=== PATIENT | female | born 1955 | race Caucasian/White ===

== ENCOUNTER 2019-07-09 09:25 | Outpatient (CLI) | payer BC, SELFPAY ==
--- NOTE | ~2019-07-09 | XR_ITS ---
EXAMINATION: XR abdomen/kub 1V INDICATION: Constipation TECHNIQUE: Supine views of the abdomen were obtained on 2 radiographs. COMPARISON: 05/09/2014 FINDINGS: A moderate volume of colonic stool is present. The bowel gas pattern is normal. Cholecystec nu clips are noted in the right upper quadrant. The lung bases are clear. Phleboliths are noted in the pelvis. IMPRESSION: 1. Constipation. Reviewed, dictated and finalized at location A. IMPRESSION: 1. Constipation.
== END 2019-07-09 09:26 | disposition home or self-care (01) ==
LOC: ANHIMG 09:30
PROVIDERS: PCP Family Medicine; Visit Provider Family Medicine
DX: K59.00 Constipation, unspecified (principal)
CPT/HCPCS: 74018

== ENCOUNTER 2021-01-20 07:40 | Outpatient (CLI) | payer BC, SELFPAY ==
--- NOTE | ~2021-01-20 | MM_ITS ---
EXAMINATION: MM screening [facility] BI w gary HISTORY: Screening TECHNIQUE: Craniocaudal and mediolateral oblique 3-D tomosynthesis images were obtained and synthetic 2-D images were generated. CAD analysis was submitted and interpreted. COMPARISON: Comparison to multiple prior studies sequentially, with oldest reviewed study dated 11/12. BREAST PARENCHYMAL COMPOSITION: There are scattered areas of fibroglandular density. FINDINGS: There is no evidence of suspicious mass, calcification, or architectural distortion to sugg est malignancy in either breast. There has been no suspicious interval change. IMPRESSION: 1. No mammographic evidence of malignancy. 2. Recommend routine screening mammography in one year. BI-RADS Category 1: Negative Reviewed, dictated and finalized at location A.
== END 2021-01-20 07:41 | disposition home or self-care (01) ==
LOC: ANHIMG 07:42
PROVIDERS: PCP Family Medicine; Visit Provider Family Medicine
DX: Z12.31 Encounter for screening mammogram for malignant neoplasm of breast (principal)
CPT/HCPCS: 77063; 77067

== ENCOUNTER 2021-03-09 14:54 | Outpatient (CLI) | payer BC, SELFPAY ==
--- NOTE | ~2021-03-09 | DEXA_ITS ---
Bone Density Report Name: MARIE MEYER Age: 65 Sex: Female Ethnicity: White Date of : 1955 Indication: postmenopausal; parental hip fracture; hysterectomy; Referring Provider: ARVIND ORANTES Study: Bone densitometry was performed. Exam Date: March 09, 2021 Accession number: [id number] Bone Density: Region BMD T-score Z-score Classification AP Spine (L1-L4) 0.926 -1.1 0.6 Osteopenia Femoral Neck (Left) 0.769 -0.7 0.8 Normal Total Hip (Left) 0.938 0.0 1.2 Normal Total Hip Bilateral Avg 0.900 -0.3 0.9 Normal Femoral Neck (Right) 0.720 -1.2 0.3 Osteopenia Total Hip (Right) 0.860 -0.7 0.5 Normal World Health Organization criteria for BMD impression classify patients as: Normal (T-score at or above -1.0), Osteopenia (T-score between -1.0 and -2.5), or Osteoporosis (T-score at or below -2.5). 10-year Fracture Risk(1): Major Osteoporotic Fracture 16% Hip Fracture 0.7% Reported Risk Factors: [place] (), Neck BMD=0.720, BMI=25.2, parental fracture (1) FRAX(R) Version 3.08. Fracture probability calculated for an untreated patient. Fracture probability may be lower if the patient has received treatment. Previous Exams: Region Exam Age BMD T-score BMD Change BMD Change Date g/cm2 vs Baseline vs Previous Total Hip(Left) 03/09/2021 65 0.938 0.0 -0.301(-24.3%) -0.301(-24.3%) 12/06/2007 52 1.238 2.4 Total Hip(Right) 03/09/2021 65 0.860 -0.7 -0.214(-20.0%) -0.214(-20.0%) 12/06/2007 52 1.074 1.1 *Denotes significance at 95% confidence level, LSC for Total Hip = 0.027 g/cm2 Clinical Information Provided by Patient: Parent has had a hip fracture Has used the following medications: Vitamin D Has the following medical conditions: Hysterectomy Patient maximum height was 64.5 Menopause Age: 52 Drinks caffeinated beverages Onset of menses at age 13 Number of children 2 Impression: The patient has low bone mass, based on the Right Femoral Neck T-score. The patient has an estimated ten-year risk of hip fracture of 0.7% and an estimated ten-year risk of major fracture of 16%, based on the WHO FRAX algorithm. The patient has risk factors, including: parental hip fracture. No significant bone loss was observed. Discussion: BONE DENSITY IS LOW AT ONE OR MORE SKELETAL SITES. This patient's lowest T-score is low at one or more skeletal sites. It meets the World Health Organization's (WHO) criteria for ?low bone mass? (T-score between -1.0 and -2.5). The jessi
== END 2021-03-09 14:55 | disposition home or self-care (01) ==
LOC: ANHIMG 14:55
PROVIDERS: PCP Family Medicine; Visit Provider Family Medicine
DX: Z78.0 Asymptomatic menopausal state (principal); M85.88 Other specified disorders of bone density and structure, other site; M85.851 Other specified disorders of bone density and structure, right thigh; M85.852 Other specified disorders of bone density and structure, left thigh
CPT/HCPCS: 77080

== ENCOUNTER 2021-06-06 17:02 | Outpatient (CLI) | payer OTHER, SELFPAY ==
--- NOTE | ~2021-06-06 | XR_ITS ---
EXAMINATION: XR chest 2V 06/06/2021 17:13 INDICATION: Chronic sinusitis PROCEDURE: 2 view chest COMPARISON: Comparison to multiple prior studies sequentially, with oldest reviewed study dated 11/27. FINDINGS: The lungs are clear. The cardiomediastinal silhouette is within normal limits. There are no pleural effusions. There is no pneumothorax suspected. IMPRESSION: 1: NO ACUTE CARDIOPULMONARY DISEASE. Reviewed, dictated and finalized at location A.
== END 2021-06-06 17:03 | disposition home or self-care (01) ==
LOC: ANHIMG 17:03
PROVIDERS: PCP Family Medicine; Visit Provider Nurse Practitioner Gerontology
DX: J32.9 Chronic sinusitis, unspecified (principal); R05.9 Cough, unspecified
CPT/HCPCS: 71046

== ENCOUNTER → 2021-06-13 11:22 | Outpatient (CLI) | payer OTHER, SELFPAY ==
--- NOTE | ~2021-06-13 | CT_ITS ---
EXAMINATION: CT sinus wo con DATE: 06/13/2021 11:35 INDICATION: Chronic sinusitis, cough, postnasal drip.. Previous bilateral turbinectomy, sinus surgery TECHNIQUE: Computed tomography (CT) of the paranasal sinuses was performed without contrast. Iterativ e reconstruction technique was employed. Exam dose: 280.89 mGy-cm total exam DLP. COMPARISON: None FINDINGS: There is rightward bowing of the nasal septum. There is partial resection of the middle nasal turbinates. There is prominent soft tissue swelling of the inferior nasal turbinates. Status post bilateral nasal antral windows, including resection of the left uncinate process.. There is minimal mucoperiosteal thickening of the maxillary sinuses. Status post bilateral partial ethmoidectomies, with mild to moderate soft tissue thickening of the re maining ethmoid septae. The frontal sinuses and sphenoid sinuses are well developed and aerated, with minimal mucoperiosteal thickening at the left sphenoid sinus. IMPRESSION: Bilateral nasal antral windows including resection of the left uncinate process Bilateral partial ethmoidectomies Mild soft tissue thickening of the maxillary and ethmoid sinuses Reviewed, dictated and finalized at Location A. Reviewed, dictated and finalized at location A. IMPRESSION: Bilateral nasal antral windows including resection of the left unc inate process Bilateral partial ethmoidectomies Mild soft tissue thickening of the maxillary and ethmoid sinuses
== END ==
PROVIDERS: PCP Family Medicine; Visit Provider Nurse Practitioner Gerontology
DX: J32.9 Chronic sinusitis, unspecified (principal)
CPT/HCPCS: 70486

== ENCOUNTER 2021-10-24 08:48 | Outpatient (CLI) | payer OTHER, SELFPAY ==
--- NOTE | ~2021-10-24 | XR_ITS ---
EXAMINATION: XR barium swallow modified DATE: 10/24/2021 09:14 INDICATION: Dysphagia. TECHNIQUE: The patient was given barium-containing material of multiple consistencies to swallow by t he speech pathologist while I performed fluoroscopy. Fluoroscopy exposure time was 0.5 minutes. The n umber of fluoroscopy images saved to the PACS was 1. Dose-area product was 0.385 Gy-cm^2. FINDINGS: The oral stage, pharyngeal stage, and cervical/esophageal stage of the swallow are normal. IMPRESSION: 1. Normal modified barium swallow. 2. Please refer to the speech therapy report for recommendations. Reviewed, dictated and finalized at location A.
--- NOTE | 2021-10-24 09:41 | STOPEVAL ---
Thank you for referring Ca Dunn to [facility].? I agree with and certify that the following plan of care is medically necessary. Referring Physician Date Attending Provider: Elias Ruvalcaba MD Therapy Assessment Status Assessment Status Assessment Status Evaluation Outpatient Past Medical History Past Medical History No Past Medical/Surgical History Patient/Family Denies Significant Past Medical/ Surgical History Pain Assessment Timing of Pain Assessment Timing of Pain Assessment Assessment Self Report Self Report Pain Level 0 Pain Score Pain Score 0: Self Report Modified Barium Swallow Evaluation Consistency Mixed Consistency 5 mL Method of Presentation Spoon Oral Preparatory Symptoms Within Functional Limits Oral Phase Symptoms Within Functional Limits Pharyngeal Phase Symptoms Within Functional Limits Severity of Vallecular Residue None - 0% No Residue Severity of Pyriform Sinus Residue None - 0% No Residue 8 Point Laryngeal Penetration-Aspiration Material Does Not Enter Airway Scale Cervical/Esophageal Symptoms Within Functional Limits Pureed Consistency 5 mL Method of Presentation Spoon Oral Preparatory Symptoms Within Functional Limits Oral Phase Symptoms Within Functional Limits Pharyngeal Phase Symptoms Within Functional Limits Severity of Vallecular Residue None - 0% No Residue Severity of Pyriform Sinus Residue None - 0% No Residue 8 Point Laryngeal Penetration-Aspiration Material Does Not Enter Airway Scale Cervical/Esophageal Symptoms Within Functional Limits Pureed Consistency 3 mL Method of Presentation Spoon Oral Preparatory Symptoms Within Functional Limits Oral Phase Symptoms Within Functional Limits Pharyngeal Phase Symptoms Within Functional Limits Severity of Vallecular Residue None - 0% No Residue Severity of Pyriform Sinus Residue None - 0% No Residue 8 Point Laryngeal Penetration-Aspiration Material Does Not Enter Airway Scale Cervical/Esophageal Symptoms Within Functional Limits Thin Uncontrolled 1 Method of Presentation Cup Oral Preparatory Symptoms Within Functional Limits Oral Phase Symptoms Within Functional Limits Pharyngeal Phase Symptoms Within Functional Limits Severity of Vallecular Residue None - 0% No Residue Severity of Pyriform Sinus Residue None - 0% No Residue 8 Point Laryngeal Penetration-Aspiration Material Does Not Enter Airway Scale Cervical/Esophageal Symptoms Within Functional Limits Thin 5 mL Method of Presentation Spoon Oral Preparatory Symptoms Within Functional Limits Oral Phase Symptoms Within Functional Limits Pharyngeal Phase Symptoms Withi
== END 2021-10-24 08:49 | disposition home or self-care (01) ==
PROVIDERS: PCP Family Medicine; Visit Provider Internal Medicine Gastroenterology
DX: R13.10 Dysphagia, unspecified (principal)
CPT/HCPCS: 92611

== ENCOUNTER 2021-10-29 03:10 | Emergency (ER) | payer OTHER, SELFPAY ==
[2021-10-29] VITALS (22 sets, daily range): BP systolic 105–160; BP diastolic 58–98; PULSE 71–118; RESP 11–23; TEMP 36.7; O2SAT 96–100
--- NOTE | ~2021-10-29 | CT_ITS ---
EXAMINATION: CT abdomen pelvis w con INDICATION: Upper abdominal pain TECHNIQUE: Computed tomographic images of the abdomen and pelvis were obtained after the administrati on of 100 cc of Omnipaque 350 intravenous contrast. The dose-length product (DLP) was 381.71 mGy-cm. Automated exposure control and iterative reconstruction technique were employed. COMPARISON: 06/29/2016 FINDINGS: Minimal dependent atelectasis is present in the lung bases. The heart size is normal. The g allbladder is surgically absent. The liver, spleen, pancreas, and adrenal glands are normal. Cysts of the kidneys measure up to 7.1 cm on the left. No pathologically enlarged abdominal or pelvic lymph n odes are identified. There is no free intraperitoneal gas or evidence of bowel obstruction. The appen deyvi is normal. Colonic diverticulosis is present without evidence of diverticulitis. There is mild portia mbar spondylosis. IMPRESSION: 1. No CT correlate for the patient's symptoms. Reviewed, dictated and finalized at location A.
--- NOTE | ~2021-10-29 | XR_ITS ---
EXAMINATION: XR chest 1V portable INDICATION: Chest pain TECHNIQUE: Portable AP chest at 0346 hours COMPARISON: 06/06/2021 FINDINGS: The lungs are free of acute opacities. No pleural effusion or pneumothorax. The cardiomedia stinal silhouette is normal. The visualized bones and soft tissues are unremarkable. IMPRESSION: 1. No acute cardiopulmonary abnormality. Reviewed, dictated and finalized at location A.
--- NOTE | 2021-10-29 03:25 | ECG_ITS ---
Measurements Intervals [place] Rate: 109 P: 70 GA: 186 QRS: 71 QRSD: 88 T: 67 QT: 326 QTc: 439 Interpretive Statements SINUS TACHYCARDIA BASELINE ARTIFACT BORDERLINE ECG NO PREVIOUS ECG AVAILABLE FOR COMPARISON Electronically Signed On 10-29-2021 14:38:41 CDT by Willie Avila M.D.
[2021-10-29 03:39] LABS: Basophils Absolute Auto 0.1 K/mm3 (0.0-0.1); Basophils Percent Auto 1.1 % (0.2-1.2); Eosinophils Absolute Auto 0.5 K/mm3 (0-0.3); Eosinophils Percent Auto 6.3 % (0-4.4); Hematocrit 39.6 % (37.0-47.0); Hemoglobin 13.1 g/dL (12.0-15.0); Immature Granulocyte Absolute 0.02 K/mm3 (0.00-0.031); Immature Granulocyte Percent A 0.2 % (0-0.5); Lymphocytes Absolute Auto 3.65 K/mm3 (0.9-3.2); Mean Corpuscular HGB Conc 33.1 g/dl (32-36); Mean Corpuscular Hemoglobin 28.4 pg (26-34); Mean Corpuscular Volume 85.7 fl (80-100); Mean Platelet Volume 8.1 fl (7.4-10.4); Monocytes Absolute Auto 0.7 K/mm3 (0.1-0.6); Monocytes Percent Auto 7.7 % (2.6-8.5); Neutrophils Absolute Auto 3.5 K/mm3 (1.3-6.7); Neutrophils Percent Auto 41.7 % (45.5-73.1); Platelet Count Result 322 k/mm3 (150-375); Red Blood Count 4.62 M/mm3 (4.2-5.4); Red Cell Distribution Width 13.2 % (11.5-14.5); White Blood Count 8.5 K/mm3 (4.5-10.0)
[2021-10-29] MEDS: KETOROLAC 30 MG/ML VIAL (*BKC) 15 MG IV PUSH (03:42)
[2021-10-29 03:53] LABS: Alanine Aminotransferase 14 U/L (6-35); Albumin Level 4.8 g/dL (3.5-5.1); Alkaline Phosphatase 50 U/L (38-126); Anion Gap 11 mmol/L (8-16); Aspartate Amino Transferase 23 U/L (14-36); Bilirubin,Total 0.4 mg/dL (0.2-1.3); Blood Urea Nitrogen 6 mg/dL (7-17); Calcium 8.8 mg/dL (8.4-10.2); Carbon Dioxide 22 mmol/L (22-30); Chloride 98 mmol/L (98-107); Estimated CRCL calculation 50 ml/min; Estimated Glomerular Filt Rate > 60; Glucose 115 mg/dL (65-110); Lipase 111 U/L (23-300); Potassium 3.6 mmol/L (3.4-5.0); Sodium 131 mmol/L (137-145)
[2021-10-29 03:59] LABS: D Dimer 0.26 ug/mL (<0.48)
[2021-10-29 04:02] LABS: Troponin I < 0.012 ng/mL (0.000-0.034)
--- NOTE | 2021-10-29 04:10 | ED.ABDPAIN ---
HPI - Abdominal Pain General Chief Complaint: Abdominal Pain Stated Complaint: upper abd pain Time Seen by Provider: 10/29/21 03:13 History of Present Illness HPI narrative: 66-year-old female presents emergency room secondary to pain. She describes it as a sharp burning pain that comes from her upper abdomen all the way around her thorax circumferentially. She states it prevents her from laying back and try to get any rest. She states it seems to come and then go. She was able to lay over on her left side and go to sleep but then when she rolled over towards the right it woke her up. She is never had anything like this before. She was painting yesterday and thought maybe she had some type of nerve type pain associated with that. Denies any cough or congestion. No chills or fevers. No pressure type sensation in her chest. She been maintaining a good appetite with no nausea, vomiting, or diarrhea. She never had anything like this before. Related Data Home Medications Medication Instructions Recorded Confirmed cholestyramine (with sugar) 4 gram PO DAILY 10/03/21 10/03/21 powder for susp in a packet coenzyme Q10 100 mg capsule 100 mg PO DAILY 10/03/21 10/03/21 Allergies Allergy/AdvReac Type Severity Reaction Status Date / Time nortriptyline Allergy Unknown nausea Verified 10/29/21 03:28 Review of Systems Review of Systems: CONSTITUTIONAL: Denies fever, chills, or sweats. EYES: Denies visual changes, redness, or discharge. ENT: Denies rhinorrhea, congestion, sore throat, or otalgia. CARDIOVASCULAR: Denies chest pain, palpitations, or edema. RESPIRATORY: Denies cough or dyspnea. GASTROINTESTINAL: Pain across upper portion of the abdomen with no associated nausea vomiting or diarrhea. GENITOURINARY: Denies dysuria or hematuria. SKIN: Denies rash or itching. MUSCULOSKELETAL: Denies back pain, joint pain, or myalgia. NEUROLOGIC: Denies headache, numbness, or weakness. PSYCHIATRIC: Denies anxiety or depression. [facility] Past Medical History Medical History Allergies Bile reflux esophagitis Constipation Endometriosis IBS (irritable bowel syndrome) Ovarian mass, left Pancreas divisum, [place] Pelvic peritoneal adhesions Spondylosis Surgical History Surgical History H/O exploratory laparotomy History of sinus surgery Hx laparoscopic cholecystectomy Hx of hysterectomy S/P left oophorectomy Family History Family History Mother Family history of thyroid disease Family history of elevated blood lipids Family history of gallbladder disease Family history of osteoarthritis Father Hypertension Family history of atrial fibrillation Patient's father is , Onset Age: 83 Sibling Family history of gallbladder disease Family history of gynecological problem Hypertension Patient's sister is in good health Grandparent Carcinoma of colon Family history of malignant neoplasm of breast Family history of type 2 diabetes mellitus Acute myocardial infarction Other Breast cancer Cancer Diabetes mellitus Family history of allergic disorder Family history of blood dyscrasia Family history of cardiovascular disease Heart disease Malignant neoplasm of prostate Thyroid disorder Social History Social History Social History: Smoking packs per day: 2 Smoking cigarettes per day: 40.0 Years smoked: 5 Smoking pack-years: 10.00 Smoking status: Former smoker Tobacco type: cigarettes Second hand tobacco smoke exposure: No Smoking end date: 03/18/77 Alcohol intake: current Drinks per week: 2 Substance use: never Substance use type: does not use Additional occupation/education comments: Self-employed Gender identity (if verbalized by the patien
== END 2021-10-29 07:51 | disposition home or self-care (01) ==
PROVIDERS: Emergency Provider Emergency Medicine; PCP Family Medicine
DX: K29.70 Gastritis, unspecified, without bleeding (principal); K58.9 Irritable bowel syndrome, unspecified; K21.00 Gastro-esophageal reflux disease with esophagitis, without bleeding; Z90.710 Acquired absence of both cervix and uterus; Z87.891 Personal history of nicotine dependence
CPT/HCPCS: 36415; 71045; 74177; 80053; 83690; 84484; 85025; 85380; 93005; 96374; 99284; J1885; Q9967

== ENCOUNTER 2021-11-08 09:33 | Outpatient (CLI) | payer OTHER, SELFPAY ==
--- NOTE | ~2021-11-08 | XR_ITS ---
EXAMINATION: XR UGIAC w barium swallow DATE: 11/08/2021 10:25 INDICATION: Dysphagia. Chronic epigastric pain. TECHNIQUE: The patient drank thick barium, gas-producing crystals, and thin barium. Fluoroscopic spot radiographs of the hypopharynx, esophagus, stomach and proximal small bowel were obtained. Fluorosco py exposure time was 1.9 minutes. A total of 1192 fluoroscopic images were recorded. COMPARISON: None. FINDINGS: The pharynx is symmetric and without evidence of mass lesion or mucosal irregularity. The esophagus i s normal without mass or stricture. Esophageal motility is normal. There is no hiatal hernia. There w as no gastroesophageal reflux with provocative maneuvers. The stomach and proximal small bowel are no rmal. IMPRESSION: 1. Normal esophagram and upper GI study. Reviewed, dictated and finalized at location A.
== END 2021-11-08 09:34 | disposition home or self-care (01) ==
PROVIDERS: PCP Family Medicine; Visit Provider Nurse Practitioner Family
DX: R13.10 Dysphagia, unspecified (principal); R10.13 Epigastric pain
CPT/HCPCS: 74246

== ENCOUNTER 2022-01-01 00:55 | Day surgery (SDC) | payer OTHER, SELFPAY ==
[2021-12-13 14:01] VITALS: BMI 25.7
--- NOTE | 2021-12-29 15:54 | PM.HPGS ---
History of Present Illness History of Present Illness Consent: Risks, benefits, and alternatives have been discussed and questions answered. Patient agrees to proceed with procedure. Chief complaint: neoplasm screening Narrative: Ca Dunn is a 66 year old female Referred for colon cancer screening. her last colonoscopy was 13 years ago. Review of Systems Review of Systems: All systems reviewed & are unremarkable except as noted in HPI and below PMFSH Past Medical History Medical History Allergies Bile reflux esophagitis Constipation Endometriosis GERD (gastroesophageal reflux disease) Hyperlipidemia Hypothyroidism (acquired) IBS (irritable bowel syndrome) Ovarian mass, left Pancreas divisum, [place] Pelvic peritoneal adhesions Spondylosis Surgical History Surgical History H/O exploratory laparotomy History of sinus surgery Hx laparoscopic cholecystectomy Hx of hysterectomy S/P left oophorectomy Family History Family History Mother Family history of thyroid disease Family history of elevated blood lipids Family history of gallbladder disease Family history of osteoarthritis Father Hypertension Family history of atrial fibrillation Patient's father is , Onset Age: 83 Sibling Family history of gallbladder disease Family history of gynecological problem Hypertension Patient's sister is in good health Grandparent Carcinoma of colon Family history of malignant neoplasm of breast Family history of type 2 diabetes mellitus Acute myocardial infarction Other Breast cancer Cancer Diabetes mellitus Family history of allergic disorder Family history of blood dyscrasia Family history of cardiovascular disease Heart disease Malignant neoplasm of prostate Thyroid disorder Social History Social History Social History: Smoking packs per day: 2 Smoking cigarettes per day: 40.0 Years smoked: 5 Smoking pack-years: 10.00 Smoking status: Former smoker Tobacco type: cigarettes Second hand tobacco smoke exposure: No Smoking end date: 03/18/77 Alcohol intake: current Drinks per week: 2 Substance use: never Substance use type: does not use Living arrangements: with family Additional occupation/education comments: Self-employed Gender identity (if verbalized by the patient): Female Sexual Orientation (if Verbalized by the Patient): Straight or Heterosexual Spiritual care concerns: No Meds Home Medications and Allergies Home Medications Medication Instructions Recorded Confirmed Type coenzyme Q10 100 mg capsule 100 mg PO DAILY 10/03/21 01/01/22 History amitriptyline 25 mg tablet 25 mg PO QHS 1 month #30 tabs 11/01/21 01/01/22 Rx cetirizine 10 mg tablet 10 mg PO HS 12/13/21 01/01/22 History fluticasone propionate 50 2 spray intranasal DAILY 12/13/21 01/01/22 History mcg/actuation nasal spray,suspension pantoprazole 40 mg tablet,delayed 40 mg PO 3XW 12/13/21 01/01/22 History release levothyroxine 25 mcg tablet 25 mcg PO DAILY #90 tabs 12/14/21 01/01/22 Rx Allergies Allergy/AdvReac Type Severity Reaction Status Date / Time nortriptyline AdvReac Unknown nausea Verified 01/01/22 07:39 Exam Const: General: alert Orientation/consciousness: patient oriented x3 Resp: Auscultation: clear to auscultation bilaterally Cardio: Rhythm: regular rhythm GI: GI Palp: Yes Soft to palpation and No Tenderness to palpation present (GI) Neuro: General: patient oriented x3 Assessment and Plan Assessment and plan (1) Encounter for colorectal cancer screening: Code(s): Z12.11 - Encounter for screening for malignant neoplasm of colon; Z12.12 - Encounter for screening for malignant neoplasm of r
--- NOTE | 2022-01-01 07:28 | WPDANESEPPF ---
Anes - Initial Pre Proc Eval Procedure: Operation Date: 01/01/22 08:30 Proposed Procedures p Screening Colonoscopy - Elias Ruvalcaba MD Date/Time: 01/01/22 07:28 Surgeon: Elias Ruvalcaba MD Pre Op Diagnosis: neoplasm screening Patient Data Age: 66 Gender: F Height: 1.6 m Weight: 66 kg Allergies Allergy/AdvReac Type Severity Reaction Status Date / Time nortriptyline AdvReac Unknown nausea Verified 01/01/22 07:39 Home Medications Medication Instructions Recorded Confirmed Type coenzyme Q10 100 mg capsule 100 mg PO DAILY 10/03/21 01/01/22 History amitriptyline 25 mg tablet 25 mg PO QHS 1 month #30 tabs 11/01/21 01/01/22 Rx cetirizine 10 mg tablet 10 mg PO HS 12/13/21 01/01/22 History fluticasone propionate 50 2 spray intranasal DAILY 12/13/21 01/01/22 History mcg/actuation nasal spray,suspension pantoprazole 40 mg tablet,delayed 40 mg PO 3XW 12/13/21 01/01/22 History release levothyroxine 25 mcg tablet 25 mcg PO DAILY #90 tabs 12/14/21 01/01/22 Rx Patient hx anesthesia problems: none Family hx anesthesia problems: none Results Review: All pre-operative results and documents have been reviewed as part of the pre-operative evaluation. [facility] Past Medical History Medical History (Updated 01/01/22 @ 07:29 by Dez Morton, ) Allergies Bile reflux esophagitis Constipation Endometriosis GERD (gastroesophageal reflux disease) Hyperlipidemia Hypothyroidism (acquired) IBS (irritable bowel syndrome) Ovarian mass, left Pancreas divisum, [place] Pelvic peritoneal adhesions Spondylosis Surgical History Surgical History H/O exploratory laparotomy History of sinus surgery Hx laparoscopic cholecystectomy Hx of hysterectomy S/P left oophorectomy Family History Family History Mother Family history of thyroid disease Family history of elevated blood lipids Family history of gallbladder disease Family history of osteoarthritis Father Hypertension Family history of atrial fibrillation Patient's father is , Onset Age: 83 Sibling Family history of gallbladder disease Family history of gynecological problem Hypertension Patient's sister is in good health Grandparent Carcinoma of colon Family history of malignant neoplasm of breast Family history of type 2 diabetes mellitus Acute myocardial infarction Other Breast cancer Cancer Diabetes mellitus Family history of allergic disorder Family history of blood dyscrasia Family history of cardiovascular disease Heart disease Malignant neoplasm of prostate Thyroid disorder Social History Social History (Updated 12/14/21 @ 07:52 by Zari Fernandez) Social History: Smoking packs per day: 2 Smoking cigarettes per day: 40.0 Years smoked: 5 Smoking pack-years: 10.00 Smoking status: Former smoker Tobacco type: cigarettes Second hand tobacco smoke exposure: No Smoking end date: 03/18/77 Alcohol intake: current Drinks per week: 2 Substance use: never Substance use type: does not use Living arrangements: with family Additional occupation/education comments: Self-employed Gender identity (if verbalized by the patient): Female Sexual Orientation (if Verbalized by the Patient): Straight or Heterosexual Spiritual care concerns: No Anes - Eval Final PreProcedure Day of Procedure 01/01/22 07:28 Patient weight: overweight Heart: regular rate and rhythm Lungs: clear to auscultation Airway: Mallampati scale class II Neurological: alert and oriented Last oral intake: >/= 8 hours ASA classification: II Emergent: no Anesthetic plan: proceed Anesthesia type and monitoring: general GIVS and standard monitoring Results Review: All pre-operative results and documents have been reviewed as part of the pre-operative evaluation. Informed Consent
[2022-01-01 07:41] VITALS: BP 125/62; PULSE 74; RESP 16; TEMP 36.4; O2SAT 97; BMI 27.3
[2022-01-01] MEDS: LACTATED RINGERS 1,000 ML 150 ML IV CONT (07:43)
[2022-01-01] MEDS: SIMETHICONE ORAL SUSPENSION 20 MG/0.3 ML 30 ML BOTTLE 0.6 ML IRRIGATION (08:44)
[2022-01-01 08:51] VITALS: BP 91/36; PULSE 78; RESP 16; O2SAT 100
[2022-01-01 09:01] VITALS: BP 122/75; PULSE 63; RESP 15; O2SAT 100
[2022-01-01 09:11] VITALS: BP 128/70; PULSE 66; RESP 17; O2SAT 99
== END 2022-01-01 09:15 | disposition home or self-care (01) ==
PROVIDERS: PCP Family Medicine; Visit Provider Internal Medicine Gastroenterology
PROC: 0DJD8ZZ Inspection of Lower Intestinal Tract, Via Natural or Artificial Opening Endoscopic (ICD-10-PCS; CPT 45378; principal; 2022-01-01 08:30)
DX: Z12.11 Encounter for screening for malignant neoplasm of colon (principal); K57.30 Diverticulosis of large intestine without perforation or abscess without bleeding; E30.9 Disorder of puberty, unspecified; N80.9 Endometriosis, unspecified; K58.9 Irritable bowel syndrome, unspecified; M47.819 Spondylosis without myelopathy or radiculopathy, site unspecified; K21.00 Gastro-esophageal reflux disease with esophagitis, without bleeding; Z90.49 Acquired absence of other specified parts of digestive tract; Z87.891 Personal history of nicotine dependence
CPT/HCPCS: G0121; J2704; J7120

== ENCOUNTER 2022-02-27 15:55 | Outpatient (CLI) | payer OTHER, SELFPAY ==
--- NOTE | ~2022-02-27 | XR_ITS ---
EXAMINATION: XR chest 2V Exam Date/Time: 02/27/2022 16:10 ELECTROPHYSIOLOGY TECH HISTORY: R05.9 - Cough, unspecified Comparison: 10/29/2021 and 06/06/2021. RESULT: Lines, tubes, and devices: None. Lungs and pleura: Clear. Cardiomediastinal silhouette: Stable. Other: No acute osseous or upper abdominal finding. IMPRESSION: No acute cardiopulmonary process. Reviewed, dictated and finalized at location K. TROPHYSIOLOGY TECH
== END 2022-02-27 15:56 | disposition home or self-care (01) ==
PROVIDERS: PCP Family Medicine; Visit Provider Family Medicine
DX: R05.9 Cough, unspecified (principal)
CPT/HCPCS: 71046

== ENCOUNTER 2022-05-28 14:12 | Outpatient (CLI) | payer OTHER, SELFPAY ==
[2022-05-28 15:03] LABS: Basophils Absolute Auto 0.1 K/mm3 (0.0-0.1); Basophils Percent Auto 1.1 % (0.2-1.2); Eosinophils Absolute Auto 0.3 K/mm3 (0-0.3); Eosinophils Percent Auto 3.7 % (0-4.4); Hematocrit 43.3 % (37.0-47.0); Hemoglobin 14.3 g/dL (12.0-15.0); Immature Granulocyte Absolute 0.02 K/mm3 (0.00-0.031); Immature Granulocyte Percent A 0.2 % (0-0.5); Lymphocytes Absolute Auto 2.11 K/mm3 (0.9-3.2); Lymphocytes Percent Auto 25.7 % (18.3-44.2); Mean Corpuscular Hemoglobin 28.9 pg (26-34); Mean Corpuscular Volume 87.5 fl (80-100); Mean Platelet Volume 8.7 fl (7.4-10.4); Monocytes Absolute Auto 0.5 K/mm3 (0.1-0.6); Monocytes Percent Auto 6.3 % (2.6-8.5); Neutrophils Absolute Auto 5.2 K/mm3 (1.3-6.7); Platelet Count Result 339 k/mm3 (150-375); Red Blood Count 4.95 M/mm3 (4.2-5.4); Red Cell Distribution Width 13.5 % (11.5-14.5); White Blood Count 8.2 K/mm3 (4.5-10.0)
[2022-05-28 15:16] LABS: Alanine Aminotransferase 21 U/L (6-35); Alkaline Phosphatase 48 U/L (38-126); Anion Gap 5 mmol/L (8-16); Aspartate Amino Transferase 28 U/L (14-36); Bilirubin,Total 0.4 mg/dL (0.2-1.3); Blood Urea Nitrogen 11 mg/dL (7-17); Calcium 9.4 mg/dL (8.4-10.2); Carbon Dioxide 28 mmol/L (22-30); Chloride 95 mmol/L (98-107); Estimated Glomerular Filt Rate > 60; Glucose 94 mg/dL (65-110); Potassium 5.4 mmol/L (3.4-5.0); Sodium 128 mmol/L (137-145)
== END 2022-05-28 14:13 | disposition home or self-care (01) ==
LOC: ANHLAB 14:13
PROVIDERS: PCP Family Medicine; Visit Provider Physician Assistant
DX: R30.0 Dysuria (principal)
CPT/HCPCS: 36415; 80053; 85025

== ENCOUNTER 2022-05-30 10:38 | Outpatient (CLI) | payer OTHER, SELFPAY ==
[2022-05-30 11:04] LABS: Alanine Aminotransferase 20 U/L (6-35); Albumin Level 4.5 g/dL (3.5-5.1); Alkaline Phosphatase 40 U/L (38-126); Anion Gap 4 mmol/L (8-16); Aspartate Amino Transferase 24 U/L (14-36); Bilirubin,Total 0.4 mg/dL (0.2-1.3); Blood Urea Nitrogen 13 mg/dL (7-17); Calcium 8.7 mg/dL (8.4-10.2); Carbon Dioxide 27 mmol/L (22-30); Chloride 103 mmol/L (98-107); Estimated Glomerular Filt Rate > 60; Glucose 68 mg/dL (65-110); Potassium 4.3 mmol/L (3.4-5.0); Sodium 134 mmol/L (137-145)
== END 2022-05-30 10:39 | disposition home or self-care (01) ==
PROVIDERS: PCP Family Medicine; Visit Provider Physician Assistant
DX: E87.1 Hypo-osmolality and hyponatremia (principal)
CPT/HCPCS: 36415; 80053

== ENCOUNTER 2022-06-13 13:17 | Outpatient (CLI) | payer OTHER, SELFPAY ==
[2022-06-13 13:44] LABS: Anion Gap 7 mmol/L (8-16); Blood Urea Nitrogen 13 mg/dL (7-17); Calcium 9.2 mg/dL (8.4-10.2); Carbon Dioxide 30 mmol/L (22-30); Chloride 101 mmol/L (98-107); Estimated Glomerular Filt Rate > 60; Glucose 75 mg/dL (65-110); Potassium 5.2 mmol/L (3.4-5.0); Sodium 138 mmol/L (137-145)
== END 2022-06-13 13:18 | disposition home or self-care (01) ==
LOC: ANHLAB 13:19
PROVIDERS: PCP Family Medicine; Visit Provider Physician Assistant
DX: E87.1 Hypo-osmolality and hyponatremia (principal)
CPT/HCPCS: 36415; 80048

== ENCOUNTER 2022-12-19 11:15 | Outpatient (CLI) | payer OTHER, SELFPAY ==
--- NOTE | ~2022-12-19 | US_ITS ---
Renal-Bladder ultrasound Clinical History: Renal cyst Technique: Real-time sonographic imaging of the kidneys and urinary bladder was performed. Findings: The right kidney measures 11.3 cm in length and the left kidney measures 10.8 cm. There is no hydronephrosis or renal calculus identified. Renal cortical echogenicity is within normal limits. Large left lower pole renal cyst measures 6.1 x 4.7 x 5.6 cm. The urinary bladder is moderately distended at the time of this exam. No intraluminal echoes are iden tified. No abnormal wall thickening is seen. Impression: 6.1 cm left lower pole benign-appearing renal cyst. No other significant findings. Reviewed, dictated and finalized at location . Impression: 6.1 cm left lower pole benign-appearing renal cyst. No other significant findings.
== END 2022-12-19 11:16 | disposition home or self-care (01) ==
PROVIDERS: PCP Family Medicine; Visit Provider Physician Assistant
DX: N28.1 Cyst of kidney, acquired (principal)
CPT/HCPCS: 76775

== ENCOUNTER 2023-03-08 14:41 | Outpatient (CLI) | payer OTHER, SELFPAY ==
--- NOTE | ~2023-03-08 | MM_ITS ---
EXAMINATION: MM screening [facility] BI w gary HISTORY: Screening TECHNIQUE: Craniocaudal and mediolateral oblique 3-D tomosynthesis images were obtained and synthetic 2-D images were generated. CAD analysis was submitted and interpreted. COMPARISON: No prior mammogram is available for comparison at this institution. BREAST PARENCHYMAL COMPOSITION: There are scattered areas of fibroglandular density. FINDINGS: There is no evidence of suspicious mass, calcification, or architectural distortion to sugg est malignancy in either breast. There has been no suspicious interval change. IMPRESSION: 1. No mammographic evidence of malignancy. 2. Recommend routine screening mammography in one year. BI-RADS Category 1: Negative Reviewed, dictated and finalized at location A. OTIONS MANAGER
== END 2023-03-08 14:42 ==
LOC: MICIMG 14:41
PROVIDERS: PCP Physician Assistant; Visit Provider Physician Assistant
DX: Z12.31 Encounter for screening mammogram for malignant neoplasm of breast (principal)
CPT/HCPCS: 77063; 77067

== ENCOUNTER 2023-04-15 12:05 | Emergency (ER) | payer OTHER, SELFPAY ==
[2023-04-15 12:16] VITALS: BP 156/76; PULSE 89; RESP 18; TEMP 36.9; O2SAT 100
--- NOTE | 2023-04-15 12:39 | ED.SKABFB ---
HPI - Skin/Abscess/Foreign Bdy General Chief complaint: Skin/Abscess/Foreign Body Stated complaint: Bump On Chin Time Seen by Provider: 04/15/23 12:32 Source: patient and RN notes reviewed Mode of arrival: ambulatory Limitations: no limitations History of Present Illness HPI narrative: Patient presents today complaining of redness and tenderness to her chin. She was treated for impetigo in the same area on 02/22/2023 with doxycycline and bacitracin. States symptoms had completely resolved until 2 days ago she had some pustules to this area and last night complains of left-sided jaw pain. Related Data Home Medications Medication Instructions Recorded Confirmed coenzyme Q10 100 mg capsule 100 mg PO DAILY 10/03/21 04/15/23 fluticasone propionate 50 2 spray intranasal DAILY 12/13/21 04/15/23 mcg/actuation nasal spray,suspension omeprazole 40 mg capsule,delayed 40 mg PO DAILY 12/04/22 04/15/23 release amitriptyline 25 mg tablet 25 mg PO DIRECTED 04/15/23 04/15/23 Allergies Allergy/AdvReac Type Severity Reaction Status Date / Time nortriptyline AdvReac Unknown nausea Verified 02/22/23 14:15 Review of Systems Review of Systems: CONSTITUTIONAL: Denies body aches, fever, chills, or sweats. EYES: Denies visual changes, redness, or discharge. ENT: Denies rhinorrhea, congestion, sore throat, or otalgia. CARDIOVASCULAR: Denies chest pain, palpitations, or edema. RESPIRATORY: Denies cough or dyspnea. GASTROINTESTINAL: Denies abdominal pain, nausea, vomiting, or diarrhea. GENITOURINARY: Denies dysuria or hematuria. SKIN: + redness and pain to the chin. MUSCULOSKELETAL: Denies back pain, joint pain, or myalgia. NEUROLOGIC: Denies headache, numbness, tingling, or weakness. PSYCH: Denies depression or anxiety. [facility] Past Medical History Medical History Abdominal pain Acute sinusitis Allergies Bile reflux esophagitis Bronchitis CAP (community acquired pneumonia) Endometriosis GERD (gastroesophageal reflux disease) Hyperlipidemia Hypothyroidism (acquired) IBS (irritable bowel syndrome) Mid-back pain, acute Ovarian mass, left Pancreas divisum, [place] Pelvic peritoneal adhesions Sinusitis Spondylosis Surgical History Surgical History H/O exploratory laparotomy History of sinus surgery Hx laparoscopic cholecystectomy Hx of hysterectomy S/P left oophorectomy Family History Family History Mother Family history of thyroid disease Family history of elevated blood lipids Family history of gallbladder disease Family history of osteoarthritis Father Hypertension Family history of atrial fibrillation Patient's father is , Onset Age: 83 Sibling Family history of gallbladder disease Family history of gynecological problem Hypertension Patient's sister is in good health Grandparent Carcinoma of colon Family history of malignant neoplasm of breast Family history of type 2 diabetes mellitus Acute myocardial infarction Other Breast cancer Cancer Diabetes mellitus Family history of allergic disorder Family history of blood dyscrasia Family history of cardiovascular disease Heart disease Malignant neoplasm of prostate Thyroid disorder Social History Social History Social History: Smoking packs per day: 2 Smoking cigarettes per day: 40.0 Years smoked: 5 Smoking pack-years: 10.00 Smoking status: Former smoker Tobacco type: cigarettes Second hand tobacco smoke exposure: No Smoking end date: 03/18/77 Alcohol intake: current Drinks per week: 2 Substance use: never Substance use type: does not use Lack of Transportation: No Lack of Food: Never True Current Housing: I Have Housing Conc
== END 2023-04-15 12:50 | disposition home or self-care (01) ==
PROVIDERS: Emergency Provider Nurse Practitioner; PCP Family Medicine
DX: L01.00 Impetigo, unspecified (principal); N80.9 Endometriosis, unspecified; E03.9 Hypothyroidism, unspecified; E78.5 Hyperlipidemia, unspecified; Z87.891 Personal history of nicotine dependence
CPT/HCPCS: 99213; G0463

== ENCOUNTER 2023-04-26 13:55 | Outpatient (CLI) | payer OTHER, SELFPAY ==
--- NOTE | ~2023-04-26 | US_ITS ---
EXAMINATION: US venous doppler [facility] DATE: 04/26/2023 14:37 INDICATION: Personal history of other venous thrombosis, left lower limb pain TECHNIQUE: Cates scale images without and with compression and Doppler images of the left lower extrem ity veins were obtained. COMPARISON: 01/24/2013 FINDINGS: The left common femoral vein, profunda femoral vein, femoral vein, popliteal vein, peroneal trunk, posterior tibial veins, and greater saphenous vein are patent. IMPRESSION: 1. Patent left lower extremity veins. No evidence of deep venous thrombosis. Reviewed, dictated and finalized at location B. 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
== END 2023-04-26 13:56 | disposition home or self-care (01) ==
PROVIDERS: PCP Family Medicine; Visit Provider Physician Assistant
DX: M79.89 Other specified soft tissue disorders (principal); Z86.718 Personal history of other venous thrombosis and embolism
CPT/HCPCS: 93971

== ENCOUNTER 2023-08-23 10:31 | Outpatient (CLI) | payer OTHER, SELFPAY ==
--- NOTE | ~2023-08-23 | XR_ITS ---
AP and lateral views of the left hip Clinical history: Pain Findings: No acute fracture or dislocation is seen. Osseous alignment is anatomic. Left hip joint is unremarkable. Soft tissues are unremarkable. Impression: No significant abnormality is seen. Reviewed, dictated and finalized at location M. Impression: No significant abnormality is seen.
--- NOTE | ~2023-08-23 | XR_ITS ---
Lumbosacral Spine: AP and lateral views Clinical History: Pain Findings: The normal lordotic curve is maintained. The vertebral bodies and posterior elements are i ntact. The intervertebral disc spaces are preserved. Moderate to advanced facet arthropathy present throughout the lumbar spine. The sacroiliac joints are normally outlined. Impression: Moderate to advanced facet arthropathy throughout the lumbar spine. Reviewed, dictated and finalized at location . Impression: Moderate to advanced facet arthropathy throughout the lumbar spine.
== END 2023-08-23 10:32 ==
PROVIDERS: PCP Physician Assistant; Visit Provider Physician Assistant
DX: M54.50 Low back pain, unspecified (principal); M79.605 Pain in left leg
CPT/HCPCS: 72100; 73502

== ENCOUNTER 2023-09-18 11:58 | Emergency (ER) | payer OTHER, SELFPAY ==
[2023-09-18 12:28] VITALS: BP 160/81; PULSE 90; RESP 16; TEMP 37.2; O2SAT 100
--- NOTE | 2023-09-18 12:57 | ED.SKABFB ---
HPI - Skin/Abscess/Foreign Bdy General Chief complaint: Skin/Abscess/Foreign Body Stated complaint: spot on chin Time Seen by Provider: 09/18/23 12:17 Source: patient and RN notes reviewed Mode of arrival: ambulatory Limitations: no limitations History of Present Illness HPI narrative: Patient presents today complaining of a chronic wound to her left chin area. She was initially seen approximately 6 months ago here at [facility] and placed on antibiotics for presumed impetigo. She was subsequently seen at her PCPs office several times then referred to Dermatology. She has been seen by Dermatology at least twice and is currently taking an antibiotic and using a topical antibiotic on her wound. Last night she accidentally removed the scab from the area and states that it is inflamed. She came in today wondering if we can do a swab on it to identify why it will not resolve. She has an appointment to follow-up with dermatology on October 03 but does not want to wait that long for further treatment. Related Data Home Medications Medication Instructions Recorded Confirmed coenzyme Q10 100 mg capsule 100 mg PO DAILY 10/03/21 08/23/23 fluticasone propionate 50 2 spray intranasal DAILY 12/13/21 08/23/23 mcg/actuation nasal spray,suspension omeprazole 40 mg capsule,delayed 40 mg PO DAILY 12/04/22 08/23/23 release amitriptyline 25 mg tablet 25 mg PO DIRECTED 04/15/23 08/23/23 Allergies Allergy/AdvReac Type Severity Reaction Status Date / Time nortriptyline AdvReac Unknown nausea Verified 08/23/23 09:54 Review of Systems Review of Systems: CONSTITUTIONAL: Denies body aches, fever, chills, or sweats. EYES: Denies visual changes, redness, or discharge. ENT: Denies rhinorrhea, congestion, sore throat, or otalgia. CARDIOVASCULAR: Denies chest pain, palpitations, or edema. RESPIRATORY: Denies cough or dyspnea. GASTROINTESTINAL: Denies abdominal pain, nausea, vomiting, or diarrhea. GENITOURINARY: Denies dysuria or hematuria. SKIN: + facial wound MUSCULOSKELETAL: Denies back pain, joint pain, or myalgia. NEUROLOGIC: Denies headache, numbness, tingling, or weakness. PSYCH: Denies depression or anxiety. [facility] Past Medical History Medical History Abdominal pain Acute sinusitis Acute streptococcal pharyngitis Allergies Atrophic lichen planus Atypical chest pain Bile reflux esophagitis Biliary stenosis Borderline hypothyroidism Brachial plexus neuropathy Bronchitis CAP (community acquired pneumonia) Cervical radiculopathy Chronic GERD Chronic left-sided thoracic back pain Colon cancer screening Dizziness Dysuria Endometriosis Epigastric pain Esophageal spasm Excessive cerumen in right ear canal Gastritis, bile acid reflux GERD (gastroesophageal reflux disease) GERD with esophagitis Hip pain, bilateral Hives Hyperlipidemia Hypothyroidism (acquired) IBS (irritable bowel syndrome) 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 Lichen sclerosus et atrophicus of the vulva Lipid screening Lipoma of thigh Liver hemangioma Longitudinal melanonychia Mass of left hip region Mid-back pain, acute Myofasciitis Neck pain on right side Neuropathic spondyloarthropathy of thoracic region Other chronic pain Ovarian mass, left Pain in left hip Pancreas divisum, [place] Patellofemoral pain syndrome of left knee Pelvic peritoneal adhesions Pharyngoesophageal dysphagia Postmenopausal atrophic vaginitis Radiculopathy of sacral region Renal cyst, acquired, left RUQ abdominal pain Sacroiliitis Sciatica of left side Sinusitis Spondylosis Spondylosis of lumbar spine Thoracic radiculopathy Tooth infection Trochanteric bursitis of left hip Surgical History Surgical History H/O exploratory laparotomy History of sinus surgery Hx laparoscopic cholecystectomy Hx of hysterectomy S/P left oophore
== END 2023-09-18 12:32 | disposition home or self-care (01) ==
PROVIDERS: Emergency Provider Nurse Practitioner; PCP Family Medicine
DX: S01.80XA Unspecified open wound of other part of head, initial encounter (principal); X58.XXXA Exposure to other specified factors, initial encounter; Z87.891 Personal history of nicotine dependence; K21.9 Gastro-esophageal reflux disease without esophagitis; N80.9 Endometriosis, unspecified; E78.5 Hyperlipidemia, unspecified; E03.9 Hypothyroidism, unspecified
CPT/HCPCS: 99212; G0463

== ENCOUNTER 2023-10-29 13:36 | Outpatient (CLI) | payer OTHER, SELFPAY ==
--- NOTE | ~2023-10-29 | XR_ITS ---
EXAMINATION: XR knee LT 3V DATE: 10/29/2023 13:52 INDICATION: Left knee pain. TECHNIQUE: 3 views of left knee including standing views were obtained. COMPARISON: Left knee radiographs 04/09/2017 FINDINGS: Bone alignment is normal. No fracture. There is mild tricompartmental osteoarthritis charac terized by tiny osteophytes. No joint space narrowing. There is a small knee joint effusion. IMPRESSION: 1. Mild left knee osteoarthritis. 2. Small left knee joint effusion. Reviewed, dictated and finalized at location A.
== END 2023-10-29 13:37 ==
PROVIDERS: PCP Family Medicine; Visit Provider Physician Assistant
DX: M17.12 Unilateral primary osteoarthritis, left knee (principal); M25.462 Effusion, left knee
CPT/HCPCS: 73562

== ENCOUNTER 2024-01-24 01:06 | Day surgery (SDC) | payer OTHER, SELFPAY ==
[2024-01-16 13:12] VITALS: BMI 26.0
--- NOTE | 2024-01-16 13:28 | PC.NURSE ---
Report to the Outpatient Waiting Room, entrance under the green pavilion located off [facility], at time __1030am__ on date __01/24/24 . Planned Procedure Time: ___1230 .? Time changes happen often and if your time is changed the preop area will call you the afternoon before. - You and your visitor will be asked to self-screen and do not enter if you have any COVID symptoms. Please call surgeon if you need to reschedule. - A mask is optional within the hospital at this time. Patients may have clear liquids (water, carbonated beverages, clear teas, apple juice) until 3 hours prior to surgery with a maximum of 20 ounces. - No food from midnight until time of surgery and no smoking(0930am) - Take only the following medications with a SIP of water on the morning of surgery: Levothyroxine DO NOT STOP ANY OF YOUR OTHER PRESCRIPTION MEDICATIONS PRIOR TO SURGERY EXCEPT THE FOLLOWING Medications to discontinue per physician Hold all vitamins and supplements for 3 days prior per Anesthesia Date to take last dose___01/20/24 Please no make-up, nail hungarian, hairspray, perfume, deodorant, or body powder the day of surgery.? No jewelry (including any body piercings) or valuables the day of surgery, leave them at home.? Please take a shower or bath the night before, or the morning of, surgery with an antibacterial soap.? Wear comfortable, loose fitting clothing.? - Jewelry must be removed prior to entering the operating room.? Rings and piercings that are not removed may be cut off. - The hospital will not accept responsibility for valuables.? - Please leave all valuables, including medications, at home the day of surgery. If you are going home after surgery, a licensed fence post driver must drive you home.? - NO public transportation without another adult if you receive anesthesia. - We recommend that an adult stay with you for 24 hours following discharge. - We also recommend that you do not drive, make important decision, drink alcoholic beverages, or take any drugs that were not prescribed by your health care provider for at least 24 hours after your discharge time. Follow any additional instructions given to you from your surgeon. Telephone instructions given to __Patient and asked if any additional questions and then verbalized understanding. Patient advised to call surgeon office or pre surgery nurse liaison [phone] if any additional questions.
--- NOTE | 2024-01-24 07:20 | WPDHPUPDATE1 ---
History and Physical Update Update Date/Time: 01/24/24 07:20 History and Physical has been reviewed, including an updated exam of the patient. There are NO changes in the patient's condition. Risks, benefits, and alternatives have been discussed and questions answered. Patient agrees to proceed with procedure.
[2024-01-24 11:00] VITALS: BP 105/68; PULSE 68; RESP 14; TEMP 36.6; O2SAT 100
[2024-01-24] MEDS: LACTATED RINGERS 1,000 ML 30 ML IV CONT (11:00)
--- NOTE | 2024-01-24 11:33 | WPDANESEPPF ---
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 Patient Data Age: 68 Gender: F Height: 1.63 m Weight: 66.5 kg Last Vital Signs Temp 36.6 C 01/24/24 11:00 Pulse 68 01/24/24 11:00 Resp 14 01/24/24 11:00 BP 105/68 01/24/24 11:00 Pulse Ox 100 01/24/24 11:00 O2 Del Method Room Air 01/24/24 11:00 Allergies Allergy/AdvReac Type Severity Reaction Status Date / Time nortriptyline AdvReac Intermediate ileus Verified 01/24/24 11:19 Home Medications Medication Instructions Recorded Confirmed Type coenzyme Q10 100 mg capsule 100 mg PO DAILY 10/03/21 01/16/24 History fluticasone propionate 50 2 spray intranasal DAILY 12/13/21 01/16/24 History mcg/actuation nasal spray,suspension amitriptyline 25 mg tablet 5 mg PO DIRECTED 04/15/23 01/16/24 History levothyroxine 25 mcg tablet See Rx Instructions .Route 01/02/24 01/24/24 Rx .COMPLEX #100 tabs linaclotide 72 mcg capsule 72 mcg PO QAM #30 caps 01/02/24 01/24/24 Rx (Linzess) Patient hx anesthesia problems: none Family hx anesthesia problems: none Results Review: All pre-operative results and documents have been reviewed as part of the pre-operative evaluation. [facility] Past Medical History Medical History Abdominal pain Acute sinusitis Acute streptococcal pharyngitis Allergies Atrophic lichen planus Atypical chest pain Bile reflux esophagitis Biliary stenosis Borderline hypothyroidism Brachial plexus neuropathy Bronchitis CAP (community acquired pneumonia) Cervical radiculopathy Chronic GERD Chronic left-sided thoracic back pain Colon cancer screening Dizziness Dysuria Endometriosis Epigastric pain Esophageal spasm Excessive cerumen in right ear canal Gastritis, bile acid reflux GERD (gastroesophageal reflux disease) GERD with esophagitis Hip pain, bilateral Hives Hyperlipidemia Hypothyroidism (acquired) IBS (irritable bowel syndrome) 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 Lichen sclerosus et atrophicus of the vulva Lipid screening Lipoma of thigh Liver hemangioma Longitudinal melanonychia Mass of left hip region Mid-back pain, acute Myofasciitis Neck pain on right side Neuropathic spondyloarthropathy of thoracic region Other chronic pain Ovarian mass, left Pain in left hip Pancreas divisum, [place] Patellofemoral pain syndrome of left knee Pelvic peritoneal adhesions Pharyngoesophageal dysphagia Postmenopausal atrophic vaginitis Radiculopathy of sacral region Renal cyst, acquired, left RUQ abdominal pain Sacroiliitis Sciatica of left side Sinusitis Spondylosis Spondylosis of lumbar spine Thoracic radiculopathy Tooth infection Trochanteric bursitis of left hip Surgical History Surgical History H/O exploratory laparotomy History of sinus surgery Hx laparoscopic cholecystectomy Hx of hysterectomy S/P left oophorectomy Family History Family History Mother Family history of thyroid disease Family history of elevated blood lipids Family history of gallbladder disease Family history of osteoarthritis Father Hypertension Family history of atrial fibrillation Patient's father is , Onset Age: 83 Sibling Family history of gallbladder disease Family history of gynecological problem Hypertension Patient's sister is in good health Grandparent Carcinoma of colon Family history of malignant neoplasm of breast Family history of type 2 diabetes mellitus Acute myocardial infarction Other Breast cancer Cancer Diabetes mellitus Family history of allergic disorder Family history of blood dyscrasia Family history of cardiovascular disease Heart disease Malignant neoplasm of prostate Thyroid disorder Social History Social History Social History: Smoking packs per day: 2 Smoking cigarettes per day: 40.0 Years smoked: 5 Smoking pack-years: 10.00 Smoking status: Former smoker Tobacco type: cigarettes Second hand tobacco smoke exposure: No Smoking end date: 03/18/78 Alcohol intake: current Drinks per week: 2 Substance use: never Substance use type: does not use Do You Feel Safe in your Home?: Yes Lack of Transportation: No Lack of Food: Never True Current Housing: I Have Housing Concerned About Future Housing: No Difficulty Paying Gas/Electric Bills: No Difficulty Paying for Meds: No Currently Unemployed: No Education: Associate Degree Difficulty w/ Childcare or Family Care: No Living arrangements: with family Additional living arrangements comments: Clarisse Occupation/Education: occupation Additional occupation/education comments: [id number] Gender identity (if verbalized by the patient): Female Sexual Orientation (if Verbalized by the Patient): Straight or Heterosexual Spiritual care concerns: No Anes - Eval Final PreProcedure Day of Procedure 01/24/24 11:33 Patient weight: overweight Heart: regular rate and rhythm Lungs: clear to auscultation Airway: Mallampati scale class II Neurological: alert and oriented Last oral intake: >/= 8 hours ASA classification: II Emergent: no Anesthetic plan: proceed Anesthesia type and monitoring: general GIVS and standard monitoring Results Review: All pre-operative results and documents have been reviewed as part of the pre-operative evaluation. Informed Consent: The patient's anesthetic plan and its attendant risks and benefits were discussed with the patient/family/POA. Questions were solicited and answers provided to the satisfaction of the patient/family/POA.
[2024-01-24] MEDS: ceFAZolin 2 GM/D5W 50 ML 2 GM/50 ML BAG IVPB (13:01)
[2024-01-24] MEDS: LIDOCAINE HCL 2% PF INJ 5 ML VIAL 10 ML INFILTRATE (13:23)
[2024-01-24 13:41] VITALS: BP 97/51; PULSE 55; RESP 16; O2SAT 97
--- NOTE | 2024-01-24 14:05 | P.OP_ITS ---
Procedure Note - Detailed Date of Procedure 01/24/24 Pre-op Diagnosis Villarreal's Neuroma Left Foot Post-op Diagnosis Same Procedure Performed Excision of Villarreal's Neuroma left foot Surgeon Kishan Bowers Jr., DPM Anesthesia MAC and Local Indications Painful left forefoot with paresthesias Findings Hypertrophic digital proper nerve at the 3rd intermetatarsal/interdigital space Description of Procedure Under mild sedation, the patient was brought in to the operating room, placed on the operating table in the supine position. A pneumatic ankle tourniquet was placed about the patient's ipsilateral ankle. Following IV sedation, local anesthesia was obtained about the ankle utilizing 20 mL of 0.5% Marcaine plain and 2% Lidocaine plain to with an ankle ring block. The foot was then scrubbed, prepped, and draped in the usual aseptic manner. An Esmarch bandage was then used to exsanguinate the patient's foot and the pneumatic ankle tourniquet was then inflated. An incision was made along the dorsal 3rd inter metatarsal space. All bleeders were cauterized as necessary. The Deep transverse intermetatarsal ligament was severed. Next, dissection was continued deep to the proper digital plantar nerve which was hypertrophied and amorphous. It was dissected proximal to the central metatarsal shaft area and transected next the distal branches were dissected and transected to the affected third and fourth digits. The neural tissue was sent for gross and histo. The Deep subcutaneous tissue was reapproximated with 4.0 Vicryl and the skin was reapproximated with 4.0 Monocryl. Upon completion of the procedure, the dorsal incision was dressed with Steri- Strips, Adaptic, 4x4s, Kerlix, and Coban. The pneumatic ankle tourniquet was then deflated and a prompt hyperemic response was noted to all digits of the affected foot. A surgical shoe was then applied. The patient did very well with the procedure and the anesthesia. The patient was transferred to the recovery room with vital signs stable and vascular status intact to all toes of the affected foot. Following a period of postoperative monitoring, the patient will be discharged home on the following written and oral postoperative instructions: 1. The patient should keep the dressing clean, dry, and intact. Use a cast protector bag with showers. 2. The patient will be strictly protected weight bearing with a surgical shoe. 3. Patient should ice and elevate the foot when at rest. 4. The patient is to contact Dr. Bowers for all postop care and if any problems arise. 5. Prescriptions were written for Percocet 5/325 dispensed 40 to be taken 1 p.o. q.4-6 hours as needed for severe pain. Estimated Blood Loss 1 Drains No Packing No Pathology Yes (Excised Neuroma sent for gross and histopathology) Complications No immediate complications Condition Stable Disposition Same day
[2024-01-24 14:11] VITALS: BP 116/76; PULSE 66; RESP 14
[2024-01-24 14:25] VITALS: BP 106/74; PULSE 65; RESP 15
== END 2024-01-24 14:32 | disposition home or self-care (01) ==
PROVIDERS: PCP Family Medicine; Visit Provider Podiatrist Foot & Ankle Surgery
PROC: (CPT 28080; principal; 2024-01-24 12:30)
DX: G57.62 Lesion of plantar nerve, left lower limb (principal); E03.9 Hypothyroidism, unspecified; K58.9 Irritable bowel syndrome, unspecified; Z87.891 Personal history of nicotine dependence
CPT/HCPCS: 28080; 88304; J0690; J2003; J2250; J2405; J2704; J3010; J7120

== ENCOUNTER 2024-01-25 13:13 | Emergency (ER) | payer OTHER, SELFPAY ==
[2024-01-25] VITALS (18 sets, daily range): BP systolic 125–163; BP diastolic 62–74; PULSE 75–88; RESP 16–20; TEMP 36.5; O2SAT 93–99
--- NOTE | ~2024-01-25 | CT_ITS ---
EXAMINATION: CT abdomen pelvis w con DATE: 01/25/2024 15:43 INDICATION: abd pain, nausea, constipation TECHNIQUE: Computed tomography (CT) of the abdomen and pelvis was performed with 100 mL Omnipaque-350 intravenous contrast. Automated exposure control and iterative reconstruction technique were employe d. The dose-length product was 395.71 mGy-cm. COMPARISON: 10/29/2021. FINDINGS: Lower thorax: Unremarkable Liver: Normal. Biliary/Gallbladder: Gallbladder is absent. No bile duct dilation. Pancreas: No mass or duct dilation. Spleen: Normal. Adrenals:No mass. Kidneys: No suspicious mass, obstructing stone, or hydronephrosis. 7.8 cm left renal cyst. Bilateral subcentimeter hypodensities too small to characterize but likely represent cysts. GI tract: Mild distal esophageal and gastric wall edema. No small or large bowel dilation. Normal sumeet endix. Diverticulosis without diverticulitis. Mesentery/Peritoneum: No ascites, mass, or free air. Retroperitoneum: No mass. Pelvis: Mild urinary bladder wall thickening. Trace free pelvic fluid. Absent uterus. Ovaries not con fidently identified. Soft Tissues: Soft tissues and body wall unremarkable. Bones: No acute osseous finding. IMPRESSION: Mild esophagitis/gastritis. Cystitis versus bladder wall thickening from incomplete distention. Reviewed, dictated and finalized at location K. ILIZER APPLICATOR
[2024-01-25 14:20] LABS: Basophils Absolute Auto 0.1 K/mm3 (0.0-0.1); Basophils Percent Auto 0.8 % (0.2-1.2); Eosinophils Absolute Auto 0.3 K/mm3 (0-0.3); Eosinophils Percent Auto 3.6 % (0-4.4); Hematocrit 38.6 % (37.0-47.0); Immature Granulocyte Absolute 0.02 K/mm3 (0.00-0.031); Immature Granulocyte Percent A 0.2 % (0-0.5); Lymphocytes Absolute Auto 1.88 K/mm3 (0.9-3.2); Lymphocytes Percent Auto 21.9 % (18.3-44.2); Mean Corpuscular HGB Conc 33.7 g/dl (32-36); Mean Corpuscular Hemoglobin 29.1 pg (26-34); Mean Corpuscular Volume 86.4 fl (80-100); Mean Platelet Volume 8.7 fl (7.4-10.4); Monocytes Absolute Auto 0.6 K/mm3 (0.1-0.6); Monocytes Percent Auto 7.1 % (2.6-8.5); Neutrophils Absolute Auto 5.7 K/mm3 (1.3-6.7); Neutrophils Percent Auto 66.4 % (45.5-73.1); Platelet Count Result 310 k/mm3 (150-375); Red Blood Count 4.47 M/mm3 (4.2-5.4); Red Cell Distribution Width 13.7 % (11.5-14.5); White Blood Count 8.6 K/mm3 (4.5-10.0)
[2024-01-25 14:32] LABS: Add Urine Microscopic? NO; Appearance Urine Clear (Clear); Bilirubin Urine Negative (Negative); Blood Urine Negative (Negative); Color Urine Yellow (Yellow); Glucose Urine UA Negative (Negative); Ketones Urine Trace mg/dL (Negative); Leukocyte Esterase Ur Negative LEU/UL (Negative); Nitrate Urine Negative (Negative); Protein Urine Negative (Negative); Specific Grav Ur 1.019 (1.001-1.035); Urobilinogen Urine 0.2 mg/dL (<2.0)
[2024-01-25 14:34] LABS: Alanine Aminotransferase 14 U/L (6-35); Albumin Level 4.4 g/dL (3.5-5.1); Alkaline Phosphatase 48 U/L (38-126); Anion Gap 7 mmol/L (4-12); Aspartate Amino Transferase 25 U/L (14-36); Bilirubin,Total 0.4 mg/dL (0.2-1.3); Blood Urea Nitrogen 10 mg/dL (7-17); Calcium 8.8 mg/dL (8.4-10.2); Carbon Dioxide 23 mmol/L (22-30); Chloride 97 mmol/L (98-107); Estimated CRCL calculation 58 ml/min; Estimated Glomerular Filt Rate > 60; Glucose 106 mg/dL (65-110); Lipase 64 U/L (23-300); Potassium 4.5 mmol/L (3.4-5.0); Sodium 127 mmol/L (137-145)
--- NOTE | 2024-01-25 14:36 | ED.ABDPAIN ---
HPI - Abdominal Pain General Chief Complaint: Abdominal Pain Stated Complaint: constipation Time Seen by Provider: 01/25/24 14:10 Source: patient Mode of arrival: ambulatory Limitations: no limitations History of Present Illness HPI narrative: this is a 68-year-old female that presents to the emergency department for abdominal pain and constipation. Ongoing over the last month. Reports she has been taking Linzess with little relief. Reports she has not had a normal bowel movement in about a month. She has also tried different stool softeners and suppositories without relief. She had foot surgery yesterday and is currently on pain medication which shows worsened her issue. Denies fevers, vomiting. Related Data Home Medications Medication Instructions Recorded Confirmed coenzyme Q10 100 mg capsule 100 mg PO DAILY 10/03/21 01/16/24 fluticasone propionate 50 2 spray intranasal DAILY 12/13/21 01/16/24 mcg/actuation nasal spray,suspension amitriptyline 25 mg tablet 5 mg PO DIRECTED 04/15/23 01/16/24 Allergies Allergy/AdvReac Type Severity Reaction Status Date / Time nortriptyline AdvReac Intermediate ileus Verified 01/25/24 13:43 Review of Systems Review of Systems: CONSTITUTIONAL: Denies fever GASTROINTESTINAL: Reports abdominal pain, nausea. Denies vomiting All systems reviewed & are unremarkable except as noted in HPI and below PMFSH Past Medical History Medical History Abdominal pain Acute sinusitis Acute streptococcal pharyngitis Allergies Atrophic lichen planus Atypical chest pain Bile reflux esophagitis Biliary stenosis Borderline hypothyroidism Brachial plexus neuropathy Bronchitis CAP (community acquired pneumonia) Cervical radiculopathy Chronic GERD Chronic left-sided thoracic back pain Colon cancer screening Dizziness Dysuria Endometriosis Epigastric pain Esophageal spasm Excessive cerumen in right ear canal Gastritis, bile acid reflux GERD (gastroesophageal reflux disease) GERD with esophagitis Hip pain, bilateral Hives Hyperlipidemia Hypothyroidism (acquired) IBS (irritable bowel syndrome) 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 Lichen sclerosus et atrophicus of the vulva Lipid screening Lipoma of thigh Liver hemangioma Longitudinal melanonychia Mass of left hip region Mid-back pain, acute Myofasciitis Neck pain on right side Neuropathic spondyloarthropathy of thoracic region Other chronic pain Ovarian mass, left Pain in left hip Pancreas divisum, [place] Patellofemoral pain syndrome of left knee Pelvic peritoneal adhesions Pharyngoesophageal dysphagia Postmenopausal atrophic vaginitis Radiculopathy of sacral region Renal cyst, acquired, left RUQ abdominal pain Sacroiliitis Sciatica of left side Sinusitis Spondylosis Spondylosis of lumbar spine Thoracic radiculopathy Tooth infection Trochanteric bursitis of left hip Surgical History Surgical History H/O exploratory laparotomy History of sinus surgery Hx laparoscopic cholecystectomy Hx of hysterectomy S/P left oophorectomy Family History Family History Mother Family history of thyroid disease Family history of elevated blood lipids Family history of gallbladder disease Family history of osteoarthritis Father Hypertension Family history of atrial fibrillation Patient's father is , Onset Age: 83 Sibling Family history of gallbladder disease Family history of gynecological problem Hypertension Patient's sister is in good health Grandparent Carcinoma of colon Family history of malignant neoplasm of breast Family history of type 2 diabetes mellitus Acute myocardial infarction Other Breast cancer Cancer Diabetes mellitus Family history of allergic disorder Family history of blood dyscrasia Family history of cardiovascular disease Heart disease Malignant neoplasm of prostate Thyroid disorder Social History Social History Social History: Smoking packs per day: 2 Smoking cigarettes per day: 40.0 Years smoked: 5 Smoking pack-years: 10.00 Smoking status: Former smoker Tobacco type: cigarettes Second hand tobacco smoke exposure: No Smoking end date: 03/18/78 Alcohol intake: current Drinks per week: 2 Substance use: never Substance use type: does not use Do You Feel Safe in your Home?: Yes Lack of Transportation: No Lack of Food: Never True Current Housing: I Have Housing Concerned About Future Housing: No Difficulty Paying Gas/Electric Bills: No Difficulty Paying for Meds: No Currently Unemployed: No Education: Associate Degree Difficulty w/ Childcare or Family Care: No Living arrangements: with family Additional living arrangements comments: Clarisse Occupation/Education: occupation Additional occupation/education comments: [id number] Gender identity (if verbalized by the patient): Female Sexual Orientation (if Verbalized by the Patient): Straight or Heterosexual Spiritual care concerns: No Exam Narrative: GENERAL: Well-appearing, well-nourished, and in no acute distress. HEAD: Normocephalic, atraumatic. EYES: EOMI. CHEST: Clear to auscultation. No respiratory distress. No wheezes rales or rhonchi HEART: Regular rate and rhythm. No murmur heard. Normal peripheral pulses. ABDOMEN: Soft, nondistended, normal active bowel sounds. Mild tenderness to palpation in the epigastrium, without guarding EXTREMITIES: Normal range of motion. No edema. SKIN: Warm, dry, no rash. NEURO: No focal deficits. Alert and oriented x3. PSYCH: Normal mood and affect Course Course Emergency Course: patient updated on her workup and agrees with plan of care Vital Signs Vital signs: Vital Signs Temperature 97.7 F 01/25/24 13:23 Pulse Rate 79 01/25/24 13:23 Respiratory Rate 16 01/25/24 13:23 Blood Pressure 163/70 H 01/25/24 13:23 Pulse Oximetry 96 01/25/24 13:23 Temperature 97.7 F 01/25/24 13:23 Pulse Rate 76 01/25/24 17:52 Respiratory Rate 20 01/25/24 17:52 Blood Pressure 125/71 01/25/24 17:52 Pulse Oximetry 98 01/25/24 17:52 Oxygen Delivery Room Air 01/25/24 13:39 MDM - Abdominal Pain MDM Narrative Medical decision making narrative: patient presents to the emergency department for abdominal discomfort and constipation. Ongoing over the last several weeks. She is afebrile and nontoxic appearing. Vitals are stable. CBC without concerning findings. Metabolic panel with some evidence of hyponatremia. This does appear to be an intermittent problem for her. She was hydrated with a L of IV fluids with some improvement. Urine without evidence of infection. CT abdomen pelvis shows mild esophagitis / gastritis. Patient updated on her workup and agrees with plan of care. She is to follow up with primary provider. Will be given order to repeat sodium outpatient. She was given warnings to return to the ER Differential Diagnosis Differential diagnosis: Likely constipation, diverticulitis, pancreatitis and other (esophagitis, gastritis, GERD, dehydration, electrolyte derangement) Lab Data Attestation: I reviewed the patient's lab results. 01/25/24 14:14 01/25/24 17:20 Labs: Lab Results 01/25/24 01/25/24 01/25/24 Range/Units 14:14 14:25 17:20 WBC 8.6 (4.5-10.0) K/mm3 RBC 4.47 (4.2-5.4) M/mm3 Hgb 13.0 (12.0-15.0) g/dL Hct 38.6 (37.0-47.0) % MCV 86.4 (80-100) fl MCH 29.1 (26-34) pg MCHC 33.7 (32-36) g/dl RDW 13.7 (11.5-14.5) % Plt Count 310 (150-375) k/mm3 MPV 8.7 (7.4-10.4) fl Immature Gran % (Auto) 0.2 (0-0.5) % Neut % (Auto) 66.4 (45.5-73.1) % Lymph % (Auto) 21.9 (18.3-44.2) % [place] % (Auto) 7.1 (2.6-8.5) % Eos % (Auto) 3.6 (0-4.4) % Baso % (Auto) 0.8 (0.2-1.2) % Lymph # (Auto) 1.88 (0.9-3.2) K/mm3 [place] # (Auto) 0.6 (0.1-0.6) K/mm3 Eos # (Auto) 0.3 (0-0.3) K/mm3 Baso # (Auto) 0.1 (0.0-0.1) K/mm3 Abs Immat Gran (auto) 0.02 (0.00-0.031) K/mm3 Absolute Neuts (auto) 5.7 (1.3-6.7) K/mm3 Absolute Nucleated RBC 0.000 (0.0-0.012) K/mm3 Nucleated RBC % 0.0 (0.0-0.2) % Sodium 127 L 129 L (137-145) mmol/L Potassium 4.5 5.0 (3.4-5.0) mmol/L Chloride 97 L 101 (98-107) mmol/L Carbon Dioxide 23 24 (22-30) mmol/L Anion Gap 7 4 (4-12) mmol/L BUN 10 8 (7-17) mg/dL Creatinine 0.70 0.70 (0.7-1.0) mg/dL Estim Creat Clear Calc 58 58 ml/min Estimated GFR > 60 > 60 (59 - ) Glucose 106 92 (65-110) mg/dL Calcium 8.8 8.6 (8.4-10.2) mg/dL Total Bilirubin 0.4 (0.2-1.3) mg/dL AST 25 (14-36) U/L ALT 14 (6-35) U/L Alkaline Phosphatase 48 (38-126) U/L Total Protein 7.0 (6.3-8.2) g/dL Albumin 4.4 (3.5-5.1) g/dL Lipase 64 (23-300) U/L Urine Color Yellow (Yellow) Urine Appearance Clear (Clear) Urine pH 6.0 (5.0-9.0) Ur Specific [place] 1.019 (1.001-1.035) Urine Protein Negative (Negative) mg/dL Urine Glucose (UA) Negative (Negative) mg/dL Urine Ketones Trace H (Negative) mg/dL Ur Blood (Man) Negative (Negative) Urine Nitrate Negative (Negative) Urine Bilirubin Negative (Negative) Urine Urobilinogen 0.2 (<2.0) mg/dL Leukocyte Esterase Rfl Negative (Negative) CARISSA/UL Imaging Data Radiologist's impression: ITS Impressions Abdomen/Pelvis CT 01/25/24 16:21 IMPRESSION: Mild esophagitis/gastritis. Cystitis versus bladder wall thickening from incomplete distention. Critical Care Time Critical Care Time Critical Care Time: No Discharge Plan Discharge Clinical Impression: Hyponatremia, Dehydration Abdominal pain Qualifiers: Abdominal location: epigastric Qualified Code(s): R10.13 - Epigastric pain Gastritis Qualifiers: Gastritis type: unspecified gastritis Chronicity: acute Gastritis bleeding: without bleeding Qualified Code(s): K29.00 - Acute gastritis without bleeding Patient Disposition: Home, Self-Care Condition: Stable Instructions: Gastritis (ED), Dehydration (ED), Hyponatremia (ED) Additional Instructions: Return to the ER if you experience fever, abdominal pain with nausea and vomiting, you are unable to keep down liquids or solids, or any other symptoms that are concerning to you Remain well hydrated. Start taking a Pepcid daily. I have put in an order electronically to repeat your blood work looking at your sodium again to ensure its improving. Do this next week at a lab of your choice Follow up with your primary care doctor Prescriptions: No Action amitriptyline 25 mg tablet 5 mg PO DIRECTED coenzyme Q10 100 mg capsule 100 mg PO DAILY Linzess 72 mcg capsule 72 mcg PO QAM Qty: 30 4RF levothyroxine 25 mcg tablet See Rx Instructions .ROUTE .COMPLEX Qty: 100 1RF Dose Instruction: Take 1 tablet by mouth once daily Rx Instructions: Take 1 tablet by mouth once daily, 2 tabs each saturday fluticasone propionate 50 mcg/actuation [place],Suspension 2 spray INTRANASAL DAILY Rx Instructions: administer into each nostril Other Ambulatory Orders: Sodium (Routine) Timeframe: 1 Week Location: Determined by Patient Ordered By: Elsa Hernandez Follow-up/Referrals: Krissy Flores MD [Primary Care Provider] -
[2024-01-25] MEDS: SODIUM CHLORIDE 0.9% IV 1,000 ML 999 ML IV CONT (16:01)
[2024-01-25] MEDS: FAMOTIDINE 20 MG/2 ML VIAL IV PUSH (16:02)
[2024-01-25] MEDS: ONDANSETRON INJ 4 MG/2 ML VIAL IV PUSH (16:02)
[2024-01-25 17:41] LABS: Anion Gap 4 mmol/L (4-12); Blood Urea Nitrogen 8 mg/dL (7-17); Calcium 8.6 mg/dL (8.4-10.2); Carbon Dioxide 24 mmol/L (22-30); Chloride 101 mmol/L (98-107); Estimated CRCL calculation 58 ml/min; Estimated Glomerular Filt Rate > 60; Glucose 92 mg/dL (65-110); Sodium 129 mmol/L (137-145)
== END 2024-01-25 18:26 | disposition home or self-care (01) ==
PROVIDERS: Emergency Provider Physician Assistant; PCP Family Medicine
DX: K29.00 Acute gastritis without bleeding (principal); E86.0 Dehydration; E87.1 Hypo-osmolality and hyponatremia; E78.5 Hyperlipidemia, unspecified; E03.9 Hypothyroidism, unspecified; K58.9 Irritable bowel syndrome, unspecified; K21.9 Gastro-esophageal reflux disease without esophagitis; Z87.01 Personal history of pneumonia (recurrent); Z87.442 Personal history of urinary calculi; Z87.891 Personal history of nicotine dependence; Z90.49 Acquired absence of other specified parts of digestive tract; Z90.710 Acquired absence of both cervix and uterus; Z90.721 Acquired absence of ovaries, unilateral; Z79.899 Other long term (current) drug therapy
CPT/HCPCS: 36415; 74177; 80048; 80053; 81003; 83690; 85025; 96361; 96374; 96375; 99284; J2405; J7030; Q9967

== ENCOUNTER 2024-11-30 11:01 | Outpatient (CLI) | payer OTHER, SELFPAY ==
--- NOTE | ~2024-11-30 | MM_ITS ---
EXAMINATION: MM screening [place] BI w gary HISTORY: Screening TECHNIQUE: Craniocaudal and mediolateral oblique 3-D tomosynthesis images were obtained and synthetic 2-D images were generated. CAD analysis was submitted and interpreted. COMPARISON: 03/08/2023 BREAST PARENCHYMAL COMPOSITION: Not Dense: The breasts are almost entirely fatty. FINDINGS: There is no evidence of suspicious mass, calcification, or architectural distortion to suggest malignancy. There has been no suspicious interval change. IMPRESSION: 1. No mammographic evidence of malignancy. Recommend routine screening mammography in one year. BI-RADS Category 2: Benign finding(s) Reviewed, dictated and finalized at location Q. IMPRESSION: 1. No mammographic evidence of malignancy. Recommend routine screening mammogra phy in one year. BI-RADS Category 2: Benign finding(s)
== END 2024-11-30 11:02 | disposition home or self-care (01) ==
LOC: MICIMG 11:02
PROVIDERS: PCP Family Medicine; Visit Provider Obstetrics & Gynecology Gynecology
DX: Z12.31 Encounter for screening mammogram for malignant neoplasm of breast (principal)
CPT/HCPCS: 77063; 77067

== ENCOUNTER 2025-01-29 03:38 | Emergency (ER) | payer OTHER, SELFPAY ==
--- NOTE | ~2025-01-29 | XR_ITS ---
Examination: XR chest 2V Clinical History: cp across chest Comparison: 02/27/2022 Technique: PA and Lateral Findings: Cardiomediastinal silhouette normal size and configuration. Lungs clear. No acute bony abnormality. IMPRESSION: 1. No acute cardiopulmonary findings. Reviewed, dictated and finalized at location R. NT LITIGATION ASSOCIATE
--- OUTSIDE RECORDS SUMMARY | 2025-01-29 03:41 | XMS_ITS | Encounter Summary ---
Author Organization [facility] Address [address] [place] [id number] Care Team Providers Care Second Time Worker Name Role Phone Luis Carlos Maria MD Primary Care Provider Clementine pathak Encounter Details Date Type Department Care Team (Latest Contact Info) Description 01/21/2018 Abstract [facility] , Keshav Espinosa MD Social History Tobacco Use Types Packs/Day Years Used Date Smoking Tobacco: Never Assessed Comments Unknown Sex and Gender Information Value Date Recorded Sex Assigned at Not on file Legal Sex Female 9:18 PM CDT Gender Identity Not on file Sexual Orientation Not on file documented as of this encounter Plan of Treatment Not on file documented as of this encounter Visit Diagnoses Not on filedocumented in this encounter Care Teams Second Time Worker Relationship Specialty Start Date End Date Luis Carlos Maria MD PCP - General 11/03/14 documented as of this encounter
--- OUTSIDE RECORDS SUMMARY | 2025-01-29 03:41 | XMS_ITS | Clinical Summary ---
Author Organization [facility] Address [address] [place] [address] Care Team Providers Care Maintenance Controller Name Role Phone Krissy Flores MD Primary Care Provider Allergies Active Allergy Reactions Criticality Noted Date Comments Nortriptyline Unknown 06/29/2017 Medications melatonin tablet Take by mouth Active levothyroxine (SYNTHROID) 25 mcg tablet Take 1 tablet (25 mcg total) by mouth daily Active multivitamin tablet Take 1 tablet by mouth Active amitriptyline (ELAVIL) 25 mg tablet Take 1 tablet (25 mg total) by mouth nightly Active cholecalciferol (VITAMIN D-3) 2000 unit tablet Take 1 tablet (2,000 Units total) by mouth daily Active Lacto no.76/Bifido/FO S/larch (WOMEN'S PROBIOTIC ORAL) Take by mouth assisted living director before breakfast Active vitamin b complex tablet Take 1 tablet by mouth daily Active omega 8-vzh-xvn-fish oil 1,000 mg (120 mg-180 mg) capsule Active coenzyme Q10 100 mg capsule Take 1 capsule (100 mg total) by mouth daily Active magnesium citrate 100 mg tablet Take 400 mg by mouth daily Active docusate sodium (COLACE) 50 mg capsuleIndicati ons:constipatio n Take 1 capsule (50 mg total) by mouth 2 (two) times a day Active Active Problems Problem Noted Date Diagnosed Date GERD without esophagitis 09/27/2023 Surgical History Surgery Date Site/Laterality Comments ANAL SPHINCTEROTOMY SINUS SURGERY ADHESIOLYSIS SINUS SURGERY 2003, 2007 BREAST BIOPSY 12/16/2012 Left Medical History Medical History Date Comments Irritable bowel syndrome Gastroesophageal reflux disease Pancreatic divisum Ovarian tumor SBO (small bowel obstruction) (HCC) with adhesiolysis Endometriosis Social History Tobacco Use Types Packs/Day Years Used Date Smoking Tobacco: Former Cigarettes Smokeless Tobacco: Never Tobacco Cessation:Counseling Given: Not Answered Alcohol Use Standard Drinks/Week Comments No 0 (1 standard drink = 0.6 oz pur e alcohol) AUDIT-C Answer Date Recorded Frequency of Alcohol Consumption Not on file 11/20/2023 Q2: How many drinks containi ng alcohol do you have on a typical day when you are drinking? Patient does not drink Frequency of Binge Drinking Not on file 06/2023 Personal Safety Answer Date Recorded Have you ever been in or are you currently in a harmful physical or emotional relationship or is someone making you feel afraid or unsafe? Denies 11/20/2023 Comments Unknown Sex and Gender Information Value Date Recorded Sex Assigned at Not on file Legal Sex Female 2:29 AM [employer]US [employer] DISPOSAL AGENT Gender Identity Not on file Sexual Orientation Not on file Last Filed Vital Signs Vital Sign Reading Time Taken Comments Blood Pressure 125/71 11/20/2023 10:50 AM CDT Pulse 63 11/20/2023 10:50 AM CDT Temperature 36 C (96.8 F) 11/20/2023 10:20 AM CDT Respiratory Rate 13 11/20/2023 10:50 AM CDT Oxygen Saturation 100% 11/20/2023 10:50 AM CDT Inhaled Oxygen Concentration - - Weight 65.8 kg (145 lb) 11/20/2023 9:31 AM CDT Height 160 cm (5' 3) 11/20/2023 9:31 AM CDT Body Mass Index 25.69 11/20/2023 9:31 AM CDT Plan of Treatment Health Maintenance Due Date Last Done Comments Colon Cancer Screening-Colonoscopy 1955 Depression Screening 1955 Hepatitis C Screening 1955 DTaP/Tdap/Td Vaccine (1 - Tdap) 06/09/1967 Hepatitis B Screening 1974 Pneumococcal vaccine 65+ (1 of 1 - PCV) 2006 Zoster Vaccine (1 of 2) 2006 Breast Cancer Screening-Mammogram 12/21/2015 015, 12/17/2013 Osteoporosis Screening-Bone Density Scan 12/20/2016 12/20/2014 Well Visit 65+ 2021 Influenza Vaccine (#1) 2024 9, 12/17/2017, 12/17/2016 Fall Risk Assessment 11/19/2024 11/20/2023 Procedures Procedure Name Priority Date/Time Associated Diagnosis Comments DEXA AXIAL SKELETON BONE DENSITY 1 OR MORE SITES Routine 12/20/2014 12:47 PM CDT SCREENING MAMMOGRAM BILATERAL W VIGNESH Routine 12/20/2014 12:47 PM CDT from Last 3 Months or Most Recently Relevant to Health Maintenance Results * Screening Mammogram Bilateral W Vignesh (12/20/2014 12:47 PM CDT) Anatomical Region Laterality Modality Breast Bilateral Mammography 12/20/2014 12:4 7 PM CDT Impressions 12/20/2014 1:27 PM CDT BI-RAD 2 BENIGN There is no mammographic evidence of malignancy. A 1 year screening mammogram is recommended. The patient has been or will be contacted. The patient will be entered into an automated reminder system to schedule a mammogram in one year. Electronically signed by: Paul Dickinson md/fox:12/20/2014 13:26:01 Machine Tool Technology Instructor: Christina Carson RT (R)(M), [facility] letter sent: Normal Exam Reading location: BI-RADS: 2 Benign [EOD] Narrative 12/20/2014 1:27 PM CDT - MAX BILAT SCREENING 3D W/CAD BILATERAL DIGITAL SCREENING MAMMOGRAM 3D/2D WITH CAD WITH MEDIOLATERAL OBLIQUE CRANIOCAUDAL: 12/20/2014 The study was acquired using full field digital technology and interpreted from soft copy. Current study was also evaluated with R2 CAD. 2D digital mammographic views, as well as 3D digital tomosynthesis were performed in the CC and MLO projections. CLINICAL: Routine mammogram. Patient denies any problems today. Grandmother with breast cancer. No personal history of breast cancer. COMPARISONS: Comparison is made to exams dated: 12/17/2013 mammogram, 05/19/2013 mammogram - [facility], 11/18/2012 mammogram, and 11/12/2012 mammogram - [facility]. BREAST TISSUE:The tissue of both breasts is predominantly fatty. FINDINGS: There is a benign calcification in the right breast. There also is a biopsy clip in the left breast. No significant masses, calcifications, or other findings are seen in either breast. There has been no significant interval change. Procedure Note Provider, MD Sandy - 08/02/2020 - MAX BILAT SCREENING 3D W/CAD BILATERAL DIGITAL SCREENING MAMMOGRAM 3D/2D WITH CAD WITH MEDIOLATERALOBLIQUE CRANIOCAUDAL: 12/20/2014 The study was acquired using full field digital technology and interpretedfrom soft copy. Current study was also evaluated with R2 CAD. 2D digital mammographic views, as well as 3D digital tomosynthesis were performed in the CC and MLO projections. CLINICAL: Routine mammogram. Patient denies any problems today.Grandmother with breast cancer. No personal history of breast cancer. COMPARISONS: Comparison is made to exams dated: 12/17/2013 mammogram,05/19/2013 mammogram - [facility], 11/18/2012 mammogram, and 11/12/2012 mammogram- [facility]. BREAST TISSUE:The tissue of both breasts is predominantly fatty. FINDINGS: There is a benign calcification in the right breast. There alsois a biopsy clip in the left breast. No significant masses, calcifications, or other findings are seen ineither breast. There has been no significant interval change. IMPRESSION: BI-RAD 2 BENIGN There is no mammographic evidence of malignancy. A 1 year screeningmammogram is recommended. The patient has been or will be contacted. The patient will be entered into an automated reminder system to schedulea mammogram in one year. Electronically signed by: Paul Dickinson md/fox:12/20/2014 13:26:01 Machine Tool Technology Instructor: Christina Carson RT (R)(M), [facility] letter sent: Normal Exam Reading location: BI-RADS: 2 Benign [EOD] us Yudi Tijerina MD IMG MAMMO PROCEDURES Final R esult * Dexa Axial Skeleton Bone Density 1 or 2 Site (12/20/2014 12:47 PM CDT) Anatomical Region Laterality Modality Body N/A Radiographic July ging 12/20/2014 12:4 7 PM CDT Impressions 12/20/2014 1:31 PM CDT Bone mineral density within normal limits. Bone mineral density: Normal (T-score above or = -1.0) Low bone mass (T-score between -1.0 and -2.5) replaces the previously used term osteopenia Osteoporosis (T-score = or below -2.5) Medical evaluation for secondary causes of low bone mineral density may be appropriate. FRAX is a World Health Organization validated fracture risk assessment tool that calculates a person's 10 year probability of a major osteoporosis related fracture and hip fracture. According to the National Osteoporosis Foundation guidelines, postmenopausal women and men age 50 or older with low bone mass and a 10 year probability of a major osteoporosis related fracture = or greater than 20% or a 10 year probability of a hip fracture = or greater than 3% should be considered for treatment. For further information, including treatment recommendations, please refer to the 2013 ISCD Official Positions (http://www.iscd.org) and the NOF's Clinician's Guide to Prevention and Treatment of Osteoporosis (http://www.nof.org/professionals/clinical-guidelines) THIS IS AN ELECTRONICALLY VERIFIED REPORT 12/20/2014 1:27 PM: Paul Dickinson M.D. Paul Dickinson M.D. MD: 01:27 PM 01:27 PM [facility] [EOD] Narrative 12/20/2014 1:31 PM CDT HISTORY: 59 year old postmenopausal female with given history of postmenopausal status. Current Height: 63.5 inches Maximum Height: 63.75 inches Weight: 158.5 pounds RISK FACTORS: Parent with hip fracture COMPARISON(S): None available IMAGING AIDE/MODEL: [employer] SL (S/N [id number]) FINDINGS: AP lumbar spine L1-L4 Total BMD is 1.075 g/ha0O-awydw is 0.3 Left Hip Total BMD is 1.057 g/cn8Q-tjssy is 0.9 Neck BMD is 0.811 g/fu3G-nrghz is -0.3 Procedure Note Provider, MD Sandy - 08/02/2020 HISTORY: 59 year old postmenopausal female with given history of postmenopausal status. Current Height: 63.5 inches Maximum Height: 63.75 inches Weight: 158.5 pounds RISK FACTORS: Parent with hip fracture COMPARISON(S): None available IMAGING AIDE/MODEL: [employer] SL (S/N [id number]) FINDINGS: AP lumbar spine L1-L4 Total BMD is 1.075 g/vw4K-mlvmg is 0.3 Left Hip Total BMD is 1.057 g/be6L-mxobu is 0.9 Neck BMD is 0.811 g/eb1T-myjrv is -0.3 IMPRESSION: Bone mineral density within normal limits. Bone mineral density: Normal (T-score above or = -1.0) Low bone mass (T-score between -1.0 and -2.5) replaces the previously used term osteopenia Osteoporosis (T-score = or below -2.5) Medical evaluation for secondary causes of low bone mineral density may be appropriate. FRAX is a World Health Organization validated fracture risk assessmenttool that calculates a person's 10 year probability of a major osteoporosisrelated fracture and hip fracture. According to the National OsteoporosisFoundation guidelines, postmenopausal women and men age 50 or older with low bonemass and a 10 year probability of a major osteoporosis related fracture = or greater than 20% or a 10 year probability of a hip fracture = or greaterthan 3% should be considered for treatment. For further information, including treatment recommendations, please referto the 2013 ISCD Official Positions (http://www.iscd.org) and the NOF's Clinician's Guide to Prevention and Treatment of Osteoporosis (http://www.nof.org/professionals/clinical-guidelines) THIS IS AN ELECTRONICALLY VERIFIED REPORT 12/20/2014 1:27 PM: Paul Dickinson M.D. Paul Dickinson M.D. MD: 01:27 PM 55:27 PM [facility] [EOD] Yudi Tijerina MD IMG DXA PROCEDURES Final Res ult from Last 3 Months or Most Recently Relevant to Health Maintenance Insurance [place] [employer] [facility] Care Teams Maintenance Controller Relationship Specialty Start Date End Date Krissy Flores MD [address] [facility] [address] [place] [id number] PCP - General 11/21/16
--- OUTSIDE RECORDS SUMMARY | 2025-01-29 03:41 | XMS_ITS | Clinical Summary ---
Author Organization [facility] Address [address] [place] [id number] Care Team Providers Care Junior Loan Processor Name Role Phone Luis Carlos Maria MD Primary Care Provider Clementine pathak Social History Tobacco Use Types Packs/Day Years Used Date Smoking Tobacco: Never Assessed Comments Unknown Sex and Gender Information Value Date Recorded Sex Assigned at Not on file Legal Sex Female 9:18 PM CDT Gender Identity Not on file Sexual Orientation Not on file Last Filed Vital Signs Vital Sign Reading Time Taken Comments Blood Pressure 135/67 11/03/2014 10:11 AM CDT Pulse 78 11/03/2014 10:11 AM CDT Temperature - - Respiratory Rate - - Oxygen Saturation - - Inhaled Oxygen Concentration - - Weight 71.2 kg (157 lb) 11/03/2014 10:11 AM CDT Height 162.6 cm (5' 4) 11/03/2014 10:11 AM CDT Body Mass Index 26.95 11/03/2014 10:11 AM CDT Plan of Treatment Health Maintenance Due Date Last Done Comments Colorectal Cancer Screening Colonoscopy (10 Years) 1956 Hepatitis C 1974 DTaP, Tdap and Td Vaccines ( 1 - Tdap) 06/09/1975 Mammogram Screening 1996 Pneumococcal Vaccine: 50+ Ye ars (1 of 1 - PCV) 2006 Zoster Vaccines (1 of 2) 2006 Dexa Scan (General) 2021 COVID-19 Vaccine ( - 2024-2 6 season) 2024 Influenza Adult (#1) 2024 RSV Immunization or 60+ Years (1 - 1-dose 75+ series) 06/09/2031 Hepatitis A Vaccines Aged Out No long er eligible based on patient's age to complete this topic Meningococcal B Vaccine Aged Out No l onger eligible based on patient's age to complete this topic Meningococcal Vaccine Aged Out No elizabeth gerry eligible based on patient's age to complete this topic RSV Immunizations Under 20 Months Aged Out No longer eligible based on patient's age to complete this topic Care Teams Junior Loan Processor Relationship Specialty Start Date End Date Luis Carlos Maria MD PCP - General 11/03/14
--- OUTSIDE RECORDS SUMMARY | 2025-01-29 03:41 | XMS_ITS | Patient Health Record ---
Author Organization [facility] Address [address] [place] [address] Care Team Providers Care Research Investigator Name Role Phone JEFFERY CLARK, MAYELA Unavailable Reason For Referral No Information Plan Of Treatment No Information Insurance Providers Payer Name Payer Address Payer Phone Subscriber Number Group Number Insured Name Patient Relationship to Insured Coverage Start Date Coverage End Date [employer] [address] [place] [address] [id number] Shaun Ca Self - patient is the insured [place] [address] [address] [place], [place] [id number] Self - patient is the insured Medical (General) History Surgical History Surgery Date(Month/Year) Ercp duct stent placement (9 [id number]):Jeffery - biliary papillary stenosis s/p biliary sphincterotomy and pancreas divisum s/p minor papilla sphincterotomy and short term stenting. Stents removed 11/23/16. 11/21/2016 Cholecystectomy 03/18/2012 Colonoscopy:Ahmed----hemorrhoids random colon bx neg F/U 10 yrs 09/26/2012 Egd/endoscopy:gastritis, neg duodenal bx . 10/01/2012 Endoscopic pancreatoscopy ([id number]):Ahmed- Normal pancreas, dilated CBD 10/30/2012 Repair of nasal septum (16519) 4 Tubal ligation 03/18/1981 Hysterectomy 03/18/1992
[2025-01-29 03:42] VITALS: BP 176/72; PULSE 105; RESP 20; TEMP 36.6; O2SAT 100
--- NOTE | 2025-01-29 03:42 | ECG_ITS ---
Test Date: 2025-01-29 03:50:12 Measurements Intervals [place] Rate: 93 P: 86 MA: 130 QRS: 64 QRSD: 93 T: 73 QT: 341 QTc: 425 Interpretive Statements SINUS RHYTHM NORMAL ELECTROCARDIOGRAM No previous ECG available for comparison Electronically Signed On 01-29-2025 13:16:08 BAR HELPER by Octavio Buckley M.D.
[2025-01-29] MEDS: ASPIRIN 81 MG CHEWABLE TABLET 324 MG PO (06:30)
--- NOTE | 2025-01-29 06:34 | ECG_ITS ---
Test Date: 2025-01-29 06:38:31 Measurements Intervals [place] Rate: 62 P: 71 PA: 154 QRS: 63 QRSD: 99 T: 66 QT: 383 QTc: 392 Interpretive Statements SINUS RHYTHM NORMAL ELECTROCARDIOGRAM Compared to ECG 01/29/2025 03:50:12 No significant changes Electronically Signed On 01-29-2025 13:18:17 CARTOGRAPHY TEACHER by Octavio Buckley M.D.
[2025-01-29 06:39] LABS: Hematocrit 43.8 % (37.0-47.0); Hemoglobin 14.3 g/dL (12.0-15.0); Immature Granulocyte Percent A 0.4 % (0-0.5); Lymphocytes Absolute Auto 2.43 K/mm3 (0.9-3.2); Mean Corpuscular HGB Conc 32.6 g/dl (32-36); Mean Corpuscular Hemoglobin 28.3 pg (26-34); Mean Corpuscular Volume 86.6 fl (80-100); Nucleated Red Blood Cells Absolute Auto 0.000 K/mm3 (0.0-0.012); Nucleated Red Blood Cells Perc 0.0 % (0.0-0.2); Platelet Count Result 344 k/mm3 (150-375); Red Blood Count 5.06 M/mm3 (4.2-5.4); White Blood Count 8.4 K/mm3 (4.5-10.0)
[2025-01-29 06:49] LABS: INR 0.9; Prothrombin Time 12.1 Seconds (11.1-14.7)
[2025-01-29 06:50] LABS: Partial Thromboplastin Time 26.2 Seconds (22.3-36.8)
[2025-01-29 07:06] LABS: Alanine Aminotransferase 21 U/L (6-35); Albumin Level 5.0 g/dL (3.5-5.1); Alkaline Phosphatase 48 U/L (38-126); Anion Gap 8 mmol/L (4-12); Aspartate Amino Transferase 37 U/L (14-36); Bilirubin,Total 0.5 mg/dL (0.2-1.3); Blood Urea Nitrogen 11 mg/dL (7-17); Calcium 9.5 mg/dL (8.4-10.2); Carbon Dioxide 25 mmol/L (22-30); Chloride 102 mmol/L (98-107); Estimated CRCL calculation 54 ml/min; Estimated Glomerular Filt Rate > 60; Glucose 103 mg/dL (65-110); Lipase 96 U/L (23-300); Potassium 4.7 mmol/L (3.4-5.0); Sodium 135 mmol/L (137-145); Total Protein 8.1 g/dL (6.3-8.2)
[2025-01-29 07:09] VITALS: BP 126/69; PULSE 72; RESP 16; TEMP 36.4; O2SAT 100
[2025-01-29 07:18] LABS: Troponin I < 0.012 ng/mL (0.000-0.034)
--- NOTE | 2025-01-29 07:32 | ED.CHESTPAIN ---
HPI - Chest Pain General Chief Complaint: Chest Pain Stated Complaint: chest pain Time Seen by Provider: 01/29/25 07:28 Source: patient Mode of arrival: ambulatory Limitations: no limitations History of Present Illness HPI narrative: this is a 69-year-old female with history of pancreatic divisum, hypothyroidism, GERD who presents the ED for chest pain. Patient states that she was woken up in the middle of night with lower chest pain. This has since resolved but is now more of a fall feeling described as more epigastric. She has a history of pancreatic divisum which has previously been stented was recently 8 years ago but is unsure what she felt at that time. She has not had any issues with that since then. Has had intermittent nausea since this started. Denies vomiting, fevers, chills, shortness of breath. Related Data Home Medications ?Medication ?Instructions ?Recorded ?Confirmed ?Last Taken ?Type coenzyme Q10 100 mg capsule 100 mg PO DAILY 10/03/21 12/02/24 12/31/21 History fluticasone propionate 50 2 spray intranasal DAILY 12/13/21 12/02/24 12/31/21 History mcg/actuation nasal spray,suspension Held on 11/18/24. Instructions: .Provider Order estradiol 0.01% (0.1 mg/gram) 1 g vaginal 2XW 12/02/24 12/02/24 Unknown History vaginal cream Allergies Allergy/AdvReac Type Severity Reaction Status Date / Time nortriptyline AdvReac Intermediate ileus Verified 12/02/24 14:49 Review of Systems Review of Systems: Gen.: Denies fevers or chills Eyes: Denies eye pain or visual change ENT: Denies congestion Respiratory: Denies shortness of breath or cough CV: As per HPI GI: as per HPI denies burning, urgency, frequency or hematuria Musculoskeletal: Denies back pain or muscle pain Neuro: Denies numbness, tingling, weakness or focal weakness Skin: Denies rash Except as documented, all other systems reviewed and negative [facility] Past Medical History Medical History Villarreal's neuroma of left foot Abscess of face Dysuria Colon cancer screening Trochanteric bursitis of left hip Tooth infection Thoracic radiculopathy Spondylosis of lumbar spine Sciatica of left side Sacroiliitis RUQ abdominal pain Renal cyst, acquired, left Radiculopathy of sacral region Postmenopausal atrophic vaginitis Pharyngoesophageal dysphagia Patellofemoral pain syndrome of left knee Pain in left hip Other chronic pain Neuropathic spondyloarthropathy of thoracic region Neck pain on right side Myofasciitis Mass of left hip region Longitudinal melanonychia Liver hemangioma Lipoma of thigh Lipid screening Lichen sclerosus et atrophicus of the vulva Intercostal neuralgia Insomnia due to medical condition Hives Hip pain, bilateral GERD with esophagitis Gastritis, bile acid reflux Excessive cerumen in right ear canal Esophageal spasm Epigastric pain Dizziness Chronic left-sided thoracic back pain Chronic GERD Cervical radiculopathy Brachial plexus neuropathy Borderline hypothyroidism Biliary stenosis Atypical chest pain Atrophic lichen planus Acute streptococcal pharyngitis CAP (community acquired pneumonia) Bile reflux esophagitis IBS (irritable bowel syndrome) Allergies Sinusitis Hyperlipidemia Hypothyroidism (acquired) Pelvic peritoneal adhesions Ovarian mass, left Endometriosis Bronchitis Acute sinusitis Mid-back pain, acute Pancreas divisum, [place] Spondylosis Abdominal pain GERD (gastroesophageal reflux disease) Surgical History Surgical History History of sinus surgery H/O exploratory laparotomy S/P left oophorectomy Hx of hysterectomy Hx laparoscopic cholecystectomy Family History Family History Mother Family history of thyroid disease Family history of elevated blood lipids Family history of gallbladder disease Family history of osteoarthritis Father Hypertension Family history of atrial fibrillation Patient's father is , Onset Age: 83 Sibling Family history of gallbladder disease Family history of gynecological problem Hypertension Patient's sister is in good health Grandparent Carcinoma of colon Family history of malignant neoplasm of breast Family history of type 2 diabetes mellitus Acute myocardial infarction Other Breast cancer Cancer Diabetes mellitus Family history of allergic disorder Family history of blood dyscrasia Family history of cardiovascular disease Heart disease Malignant neoplasm of prostate Thyroid disorder Social History Social History Social History: Smoking packs per day: 2 Smoking cigarettes per day: 40.0 Years smoked: 5 Smoking pack-years: 10.00 Smoking status: Former smoker Tobacco type: cigarettes Second hand tobacco smoke exposure: No Smoking end date: 03/18/78 Alcohol intake: current Drinks per week: 2 Substance use: never Substance use type: does not use Do You Feel Safe in your Home?: Yes Lack of Transportation: No Lack of Food: Never True Current Housing: I Have Housing Concerned About Future Housing: No Difficulty Paying Gas/Electric Bills: No Difficulty Paying for Meds: No Currently Unemployed: No Education: Associate Degree Difficulty w/ Childcare or Family Care: No Living arrangements: with family Additional living arrangements comments: Hubby Occupation/Education: occupation 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 CARDIOVASCULAR: Regular rate and rhythm without murmurs rubs or gallops. ABDOMINAL: Soft, minimal epigastric tenderness to palpation, nondistended, no rebound or guarding MUSCULOSKELETAl: Moves all extremities. No clubbing, cyanosis or edema. NEURO: Awake and alert. Following commands, speech normal, no focal deficits SKIN:: Warm, dry. No rashes lesions or abrasions PSYCHIATRIC: Normal affect/mood, Course Vital Signs Vital signs: Vital Signs Temperature 97.8 F 01/29/25 03:42 Pulse Rate 105 H 01/29/25 03:42 Respiratory Rate 20 01/29/25 03:42 Blood Pressure 176/72 H 01/29/25 03:42 Pulse Oximetry 100 01/29/25 03:42 Oxygen Delivery Room Air 01/29/25 03:42 Temperature 97.6 F 01/29/25 07:09 Pulse Rate 64 01/29/25 08:16 Respiratory Rate 12 01/29/25 08:16 Blood Pressure 114/96 H 01/29/25 08:16 Pulse Oximetry 97 01/29/25 08:16 Oxygen Delivery Room Air 01/29/25 06:36 MDM - Chest Pain MDM Narrative Medical decision making narrative: 69-year-old female Presenting for chest pain and epigastric abdominal pain. On initial evaluation patient was in no acute distress afebrile, hemodynamic stable. Differentials include but are not limited to: ACS, PE, PNA, bronchitis, costochondritis, pleurisy, viral syndrome, GERD Notable exam findings: Mild epigastric tenderness to palpation. I personally reviewed the patient's lab result. Notable lab findings: CBC and CMP without significant abnormalities. Lipase within normal limits. Troponin negative. I personally reviewed the patient's images. Notable imaging findings: Chest x-ray showed no acute process. I personally reviewed the patient's EKGs: 01/29/2025 at 3:50 a.m.: Normal sinus rhythm, normal axis, normal intervals, no acute ST or T-wave changes 01/29/2025 at 6:38 a.m.: Normal sinus rhythm, normal axis, normal intervals, no acute ST or T-wave changes Patient's symptoms are more consistent with a gastritis or peptic ulcer disease. I did try a GI cocktail with minimal improvement and. Patient does have a colonoscopy scheduled with the GI and I advised her to call their office today to potentially schedule an EGD with this. Patient was given a short course of Protonix and Zofran. She was advised to take Tylenol for pain. Patient was agreeable to this plan. Given strict return precautions. Medical Records Data Attestation: I reviewed the patient's medical records. Lab Data Attestation: I reviewed the patient's lab results. 01/29/25 06:31 01/29/25 06:31 Labs: Lab Results 01/29/25 Range/Units 06:31 WBC 8.4 (4.5-10.0) K/mm3 RBC 5.06 (4.2-5.4) M/mm3 Hgb 14.3 (12.0-15.0) g/dL Hct 43.8 (37.0-47.0) % MCV 86.6 (80-100) fl MCH 28.3 (26-34) pg MCHC 32.6 (32-36) g/dl RDW 13.6 (11.5-14.5) % Plt Count 344 (150-375) k/mm3 MPV 8.4 (7.4-10.4) fl Immature Gran % (Auto) 0.4 (0-0.5) % Neut % (Auto) 58.2 (45.5-73.1) % Lymph % (Auto) 29.0 (18.3-44.2) % [place] % (Auto) 8.2 (2.6-8.5) % Eos % (Auto) 3.2 (0-4.4) % Baso % (Auto) 1.0 (0.2-1.2) % Lymph # (Auto) 2.43 (0.9-3.2) K/mm3 [place] # (Auto) 0.7 H (0.1-0.6) K/mm3 Eos # (Auto) 0.3 (0-0.3) K/mm3 Baso # (Auto) 0.1 (0.0-0.1) K/mm3 Abs Immat Gran (auto) 0.03 (0.00-0.031) K/mm3 Absolute Neuts (auto) 4.9 (1.3-6.7) K/mm3 Absolute Nucleated RBC 0.000 (0.0-0.012) K/mm3 Nucleated RBC % 0.0 (0.0-0.2) % PT 12.1 (11.1-14.7) Seconds INR 0.9 APTT 26.2 (22.3-36.8) Seconds Sodium 135 L (137-145) mmol/L Potassium 4.7 (3.4-5.0) mmol/L Chloride 102 (98-107) mmol/L Carbon Dioxide 25 (22-30) mmol/L Anion Gap 8 (4-12) mmol/L BUN 11 (7-17) mg/dL Creatinine 0.75 (0.7-1.0) mg/dL Estim Creat Clear Calc 54 ml/min Estimated GFR > 60 (59 - ) Glucose 103 (65-110) mg/dL Calcium 9.5 (8.4-10.2) mg/dL Total Bilirubin 0.5 (0.2-1.3) mg/dL AST 37 H (14-36) U/L ALT 21 (6-35) U/L Alkaline Phosphatase 48 (38-126) U/L Troponin I < 0.012 (0.000-0.034) ng/mL Total Protein 8.1 (6.3-8.2) g/dL Albumin 5.0 (3.5-5.1) g/dL Lipase 96 (23-300) U/L Imaging Data Attestation: I personally reviewed and interpreted this imaging study as follows: Radiologist's impression: Impressions Chest X-Ray 01/29/25 06:10 IMPRESSION: 1. No acute cardiopulmonary findings. Discharge Plan Discharge Clinical Impression: Abdominal pain Qualifiers: Abdominal location: epigastric Qualified Code(s): R10.13 - Epigastric pain Patient Disposition: Home Condition: Stable Instructions: Antibiotic Form, Abdominal Pain (ED) Additional Instructions: Lab work is reassuring and showed no evidence of cardiac damage or pancreatitis at this time. Your pain may be related to a gastritis or other gastric abnormality. You should call your GI doctor today to potentially abdomen and EGD to your colonoscopy that is scheduled. He was given prescriptions for Protonix and Zofran, take these as prescribed. Follow-up with the PCP in the next week for re-evaluation. Return to the ED for any new or worsening symptoms. Patient Language: Kuwaiti Prescriptions: New pantoprazole [Protonix] 40 mg tablet,delayed release (DR/EC) 40 mg PO HS Qty: 14 0RF ondansetron 4 mg tablet,disintegrating 4 mg PO Q8H PRN (Reason: nausea and vomiting) Qty: 14 0RF No Action coenzyme Q10 100 mg capsule 100 mg PO DAILY estradiol 0.01 % (0.1 mg/gram) cream 1 g vaginal 2XW Patient Comments: per SLEEP TECHNICIAN clobetasol 0.05 % cream 1 applic TOPICAL DAILY Qty: 30 0RF Rx Instructions: Apply 1 gram to affected area as needed for flares ketoconazole 2 % cream See Rx Instructions topical BID Qty: 30 0RF Rx Instructions: Apply 1 gram topically to abdomen twice a day; fluticasone propionate 50 mcg/actuation [place],Suspension 2 spray INTRANASAL DAILY Rx Instructions: administer into each nostril Debrox 6.5 % drops 5 drp LEFT EAR Q12H 4 Days Qty: 15 0RF levothyroxine 25 mcg tablet See Rx Instructions .ROUTE .COMPLEX Qty: 100 1RF Dose Instruction: Take 1 tablet by mouth once daily Rx Instructions: Take 1 tablet by mouth once daily, 2 tabs each saturday Follow-up/Referrals: Marcio Olvera MD [Primary Care Provider, Family Practice] Ruvalcaba,Elias Woodruff MD [Non-Staff, Gastroenterology]
[2025-01-29] MEDS: BELLADONNA ALK/PHENOB ELIX 10 ML, MAG HYDROX/ALUMINUM HYD/SIMETH 30 ML, LIDOCAINE 2% VI... PO (07:54)
[2025-01-29 08:16] VITALS: BP 114/96; PULSE 64; RESP 12; O2SAT 97
--- OUTSIDE RECORDS SUMMARY | 2025-01-29 08:32 | XMS_ITS | Clinical Summary ---
Author Organization [facility] Address [address] [place] [address] Care Team Providers Care Business Account Specialist Name Role Phone Luis Carlos Maria MD [...] age to complete this topic Care Teams Business Account Specialist Relationship Specialty Start Date End Date Luis Carlos Maria MD PCP - General 11/03/14
--- OUTSIDE RECORDS SUMMARY | 2025-01-29 08:32 | XMS_ITS | Clinical Summary ---
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 BREAST TISSUE:The tissue of both breasts is [...] to exams dated: 12/17/2013 mammogram,05/19/2013 mammogram - [facility], 11/18/2012 mammogram, and 11/12/2012 mammogram- [facility]. BREAST TISSUE:The tissue of both breasts is [...] Electronically signed by: Paul Dickinson md/fox:12/20/2014 13:26:01 Outbound Supervisor: Christina Carson RT (R)(M), [facility] letter sent: Normal Exam Reading location: BI-RADS: [...] Dickinson M.D. MD: 01:27 PM 01:27 PM [facility] [EOD] Narrative 12/20/2014 1:31 PM CDT HISTORY: 59 year old postmenopausal female with given history of postmenopausal status. Current Height: 63.5 inches Maximum Height: 63.75 inches Weight: 158.5 pounds RISK FACTORS: Parent with hip fracture COMPARISON(S): None available STATION TENDER/MODEL: MiracleCord Discovery SL (S/N [id number]) FINDINGS: AP lumbar spine L1-L4 Total BMD is 1.075 g/od0R-mybci is 0.3 Left Hip Total BMD is 1.057 g/ci9O-mbjhe is 0.9 Neck BMD is 0.811 g/op5S-ezvdy is -0.3 Procedure Note Provider, MD Sandy - 08/02/2020 HISTORY: 59 year old postmenopausal female with given history of postmenopausal status. Current Height: 63.5 inches Maximum Height: 63.75 inches Weight: 158.5 pounds RISK FACTORS: Parent with hip fracture COMPARISON(S): None available STATION TENDER/MODEL: MiracleCord Discovery SL (S/N [id number]) FINDINGS: AP lumbar spine L1-L4 Total BMD is 1.075 g/ls3E-mzszk is 0.3 Left Hip Total BMD is 1.057 g/iy9H-nvmfg is 0.9 Neck BMD is 0.811 g/qz5W-hgnha is -0.3 IMPRESSION: Bone mineral density within [...] M.D. Paul Dickinson M.D. MD: 01:27 PM 38:27 PM [facility] [EOD] Yudi Tijerina MD IMG DXA PROCEDURES Final Res ult from Last 3 Months or Most Recently Relevant to Health Maintenance Insurance BL CHOICE PRF [place] [facility] Care Teams Foundry Process Engineer Relationship Specialty Start Date End Date Krissy Flores MD [address] [facility] [address] [place] [id number] PCP - General 11/21/16
--- OUTSIDE RECORDS SUMMARY | 2025-01-29 08:32 | XMS_ITS | Encounter Summary ---
Author Organization [facility] Address [address] [place] [address] Care Team Providers Care Glass Washer Name Role Phone Luis Carlos Maria MD Primary Care Provider Clementine pathak Encounter Details Date Type Department Care Team (Latest Contact Info) Description 01/21/2018 Abstract [facility] , Keshav Espinosa MD [...] on filedocumented in this encounter Care Teams Glass Washer Relationship Specialty Start Date End Date Luis Carlos Maria MD PCP - General 11/03/14 documented as of this encounter
== END 2025-01-29 08:29 | disposition home or self-care (01) ==
LOC: ANHED 08:21
PROVIDERS: Student in an Organized Health Care Education/Training Program; Emergency Provider Student in an Organized Health Care Education/Training Program; PCP Family Medicine
DX: R10.13 Epigastric pain (principal); E03.9 Hypothyroidism, unspecified; E78.5 Hyperlipidemia, unspecified; K21.9 Gastro-esophageal reflux disease without esophagitis; K21.00 Gastro-esophageal reflux disease with esophagitis, without bleeding; N80.9 Endometriosis, unspecified; Z87.01 Personal history of pneumonia (recurrent); Z87.891 Personal history of nicotine dependence; Z90.721 Acquired absence of ovaries, unilateral; Z90.49 Acquired absence of other specified parts of digestive tract
CPT/HCPCS: 36415; 71046; 80053; 83690; 84484; 85025; 85610; 85730; 93005; 99284; A9270

== ENCOUNTER 2025-02-27 10:23 | Day surgery (SDC) | payer OTHER, SELFPAY ==
[2025-02-08 11:34] VITALS: BMI 25.7
[2025-02-19 08:08] VITALS: BMI 25.7
--- OUTSIDE RECORDS SUMMARY | 2025-02-27 10:25 | XMS_ITS | Encounter Summary ---
Author Organization [facility] Address [address] [place] [address] Care Team Providers Care Software Licensing Specialist Name Role Phone Luis Carlos Maria MD Primary Care Provider Clementine pathak Encounter Details Date Type Department Care Team (Latest Contact Info) Description 01/21/2018 Abstract [facility] , Keshav Espinosa [...] on filedocumented in this encounter Care Teams Software Licensing Specialist Relationship Specialty Start Date End Date Luis Carlos Maria MD PCP - General 11/03/14 documented as of this encounter
--- OUTSIDE RECORDS SUMMARY | 2025-02-27 10:25 | XMS_ITS | Clinical Summary ---
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 BREAST TISSUE:The tissue of both breasts is [...] dated: 12/17/2013 mammogram,05/19/2013 mammogram - [facility], 11/18/2012 mammogram, and 11/12/2012 mammogram- [facility]. BREAST TISSUE:The tissue of both breasts is [...] Electronically signed by: Paul Dickinson md/fox:12/20/2014 13:26:01 Poly Packer And Heat Sealer: Christina Carson RT (R)(M), [facility] letter sent: Normal Exam Reading [...] Dickinson M.D. MD: 01:27 PM 01:27 PM [facility] [EOD] Narrative 12/20/2014 1:31 PM CDT HISTORY: 59 year old postmenopausal female with given history of postmenopausal status. Current Height: 63.5 inches Maximum Height: 63.75 inches Weight: 158.5 pounds RISK FACTORS: Parent with hip fracture COMPARISON(S): None available PRODUCTION MACHINE COMPUTER OPERATOR/MODEL: MeMed Discovery SL (S/N [id number]) FINDINGS: AP lumbar spine L1-L4 Total BMD is 1.075 g/ix1Z-mzitz is 0.3 Left Hip Total BMD is 1.057 g/td8F-cmlga is 0.9 Neck BMD is 0.811 g/ih9E-vsqqg is -0.3 Procedure Note Provider, MD Sandy - 08/02/2020 HISTORY: 59 year old postmenopausal female with given history of postmenopausal status. Current Height: 63.5 inches Maximum Height: 63.75 inches Weight: 158.5 pounds RISK FACTORS: Parent with hip fracture COMPARISON(S): None available PRODUCTION MACHINE COMPUTER OPERATOR/MODEL: MeMed Discovery SL (S/N [id number]) FINDINGS: AP lumbar spine L1-L4 Total BMD is 1.075 g/js1P-jkslq is 0.3 Left Hip Total BMD is 1.057 g/zo4W-ypzvw is 0.9 Neck BMD is 0.811 g/ef2V-xbqqf is -0.3 IMPRESSION: Bone mineral density within [...] M.D. Paul Dickinson M.D. MD: 01:27 PM 74:27 PM [facility] [EOD] Yudi Tijerina MD IMG DXA PROCEDURES Final Res ult from Last 3 Months or Most Recently Relevant to Health Maintenance Insurance [place] [facility] Care Teams Auto Slip Cover Installer Relationship Specialty Start Date End Date Krissy Flores MD [address] [facility] [address] [place] [id number] PCP - General 11/21/16
--- OUTSIDE RECORDS SUMMARY | 2025-02-27 10:25 | XMS_ITS | Clinical Summary ---
Author Organization [facility] Address [address] [place] [address] Care Team Providers Care Can Closing Machine Operator Name Role Phone Luis Carlos Maria MD [...] age to complete this topic Care Teams Can Closing Machine Operator Relationship Specialty Start Date End Date Luis Carlos Maria MD PCP - General 11/03/14
--- OUTSIDE RECORDS SUMMARY | 2025-02-27 10:25 | XMS_ITS | Patient Health Record ---
Author Organization [facility] Address [address] [place] [address] Care Team Providers Care Mint Wafer Depositor Name Role Phone JEFFERY CLARK, MAYELA Unavailable [phone] Reason For Referral No Information Plan Of Treatment No Information Insurance Providers Payer Name Payer Address Payer Phone Subscriber Number Group Number Insured Name Patient Relationship to Insured Coverage Start Date Coverage End Date [place] [address] [place] [address] [id number] Shaun Ca Self - patient is the insured [place] [address] [place], [place] [id number] Self - patient is the insured Medical (General) History Surgical History Surgery Date(Month/Year) Ercp duct stent placement (0 4171):Jeffery - biliary papillary stenosis s/p biliary sphincterotomy and pancreas divisum s/p minor papilla sphincterotomy and short term stenting. Stents removed 11/23/16. 11/21/2016 Cholecystectomy 03/18/2012 Colonoscopy:[facility]----hemorrhoids random colon bx neg F/U 10 yrs 09/26/2012 Egd/endoscopy:gastritis, neg duodenal bx . 10/01/2012 Endoscopic pancreatoscopy (3 2321):[facility]- Normal pancreas, dilated CBD 10/30/2012 Repair of nasal septum (49632) 4 Tubal ligation 03/18/1981 Hysterectomy 03/18/1992
[2025-02-27 10:53] VITALS: BMI 26.2
[2025-02-27 10:55] VITALS: BP 118/63; PULSE 60; RESP 16; TEMP 36.9; O2SAT 99
[2025-02-27] MEDS: SIMETHICONE ORAL SUSPENSION 20 MG/0.3 ML 30 ML BOTTLE 1.8 ML PO (11:00)
[2025-02-27] MEDS: LACTATED RINGERS 1,000 ML 150 ML IV CONT (11:16)
--- NOTE | 2025-02-27 12:18 | PM.IMHP2 ---
H&P: HPI History of Present Illness Date/Time: 02/27/25 12:18 Chief Complaint: GERD-screening colonoscopy Narrative: This is the patient's 2nd screening colonoscopy. the last 1 was 3 years ago, and the prep was considered poor. In addition, the patient complains of frequent heartburn and epigastric pain, especially at night. She is now referred for EGD and colonoscopy. Review of Systems Review of Systems: All systems reviewed & are unremarkable except as noted in HPI and below PMFSH Past Medical History Medical History Villarreal's neuroma of left foot Abscess of face Dysuria Colon cancer screening Trochanteric bursitis of left hip Tooth infection Thoracic radiculopathy Spondylosis of lumbar spine Sciatica of left side Sacroiliitis RUQ abdominal pain Renal cyst, acquired, left Radiculopathy of sacral region Postmenopausal atrophic vaginitis Pharyngoesophageal dysphagia Patellofemoral pain syndrome of left knee Pain in left hip Other chronic pain Neuropathic spondyloarthropathy of thoracic region Neck pain on right side Myofasciitis Mass of left hip region Longitudinal melanonychia Liver hemangioma Lipoma of thigh Lipid screening Lichen sclerosus et atrophicus of the vulva Intercostal neuralgia Insomnia due to medical condition Hives Hip pain, bilateral GERD with esophagitis Gastritis, bile acid reflux Excessive cerumen in right ear canal Esophageal spasm Epigastric pain Dizziness Chronic left-sided thoracic back pain Chronic GERD Cervical radiculopathy Brachial plexus neuropathy Borderline hypothyroidism Biliary stenosis Atypical chest pain Atrophic lichen planus Acute streptococcal pharyngitis CAP (community acquired pneumonia) Bile reflux esophagitis IBS (irritable bowel syndrome) Allergies Sinusitis Hyperlipidemia Hypothyroidism (acquired) Pelvic peritoneal adhesions Ovarian mass, left Endometriosis Bronchitis Acute sinusitis Mid-back pain, acute Pancreas divisum, [place] Spondylosis Abdominal pain GERD (gastroesophageal reflux disease) Surgical History Surgical History History of sinus surgery H/O exploratory laparotomy S/P left oophorectomy Hx of hysterectomy Hx laparoscopic cholecystectomy Family History Family History Mother Family history of thyroid disease Family history of elevated blood lipids Family history of gallbladder disease Family history of osteoarthritis Father Hypertension Family history of atrial fibrillation Patient's father is , Onset Age: 83 Sibling Family history of gallbladder disease Family history of gynecological problem Hypertension Patient's sister is in good health Grandparent Carcinoma of colon Family history of malignant neoplasm of breast Family history of type 2 diabetes mellitus Acute myocardial infarction Other Breast cancer Cancer Diabetes mellitus Family history of allergic disorder Family history of blood dyscrasia Family history of cardiovascular disease Heart disease Malignant neoplasm of prostate Thyroid disorder Social History Social History Social History: Smoking packs per day: 2 Smoking cigarettes per day: 40.0 Years smoked: 5 Smoking pack-years: 10.00 Smoking status: Former smoker Tobacco type: cigarettes Second hand tobacco smoke exposure: No Smoking end date: 03/18/78 Alcohol intake: current Drinks per week: 3 Alcohol use details: wine Substance use: never Substance use type: does not use Lack of Transportation: No Lack of Food: Never True Current Housing: I Have Housing Concerned About Future Housing: No Difficulty Paying Gas/Electric Bills: No Difficulty Paying for Meds: No Currently Unemployed: No Education: Associate Degree Difficulty w/ Childcare or Family Care: No Living arrangements: with family Additional living arrangements comments: Clarisse Occupation/Education: occupation Additional occupation/education comments: [id number] Gender identity (if verbalized by the patient): Female Sexual Orientation (if Verbalized by the Patient): Straight or Heterosexual Spiritual care concerns: No Meds Home Medications and Allergies Home Medications ?Medication ?Instructions ?Recorded ?Confirmed ?Type coenzyme Q10 100 mg capsule 100 mg PO DAILY 10/03/21 02/27/25 History fluticasone propionate 50 2 spray intranasal DAILY PRN 12/13/21 02/27/25 History mcg/actuation nasal allergy symptoms spray,suspension Held on 11/18/24. Instructions: .Provider Order levothyroxine 25 mcg tablet See Rx Instructions .Route 07/06/24 02/27/25 Rx .COMPLEX #100 tabs estradiol 0.01% (0.1 mg/gram) 1 g vaginal 2XW 12/02/24 02/27/25 History vaginal cream pantoprazole 40 mg tablet,delayed 40 mg PO HS #30 tabs 02/08/25 02/27/25 Rx release (Protonix) Saccharomyces boulardii 250 mg 250 mg PO DAILY 02/19/25 02/27/25 History capsule (Daily Probiotic (S. boulardii)) carbamide peroxide 6.5 % ear drops 5 drp LEFT EAR WEEKLY 02/19/25 02/27/25 History (Debrox) cholecalciferol (vitamin D3) 25 25 mcg PO DAILY 02/19/25 02/27/25 History mcg (1,000 unit) capsule (Vitamin D3) clobetasol 0.05 % topical cream 1 applic topical DAILY PRN rash 02/19/25 02/27/25 History multivitamin (Daily Multi-Vitamin 1 tablet PO DAILY 02/19/25 02/27/25 History tablet) Allergies Allergy/AdvReac Type Severity Reaction Status Date / Time nortriptyline AdvReac Intermediate ileus Verified 02/27/25 10:40 Vital Signs Vital Signs - 24 hr 02/27/25 10:55 Temperature 98.4 F Pulse Rate 60 Respiratory Rate 16 Blood Pressure 118/63 Pulse Oximetry 99 Oxygen Delivery Room Air Exam Const: General: cooperative and healthy appearing Resp: Effort & Inspection: normal respiratory effort and able to speak in complete sentences Auscultation: clear to auscultation bilaterally Cardio: Rate: regular rate Rhythm: regular rhythm GI: Inspection: normal to inspection GI Palp: No No hepatosplenomegaly present Auscultation: normal bowel sounds Rectal Exam: deferred Skin: General skin exam: normal color Psych: Appearance: grossly normal Mental Status: mental status grossly normal Assessment and Plan Assessment and plan (1) GERD (gastroesophageal reflux disease): Code(s): K21.9 - Gastro-esophageal reflux disease without esophagitis Status: Acute Assessment and Plan: The patient is deemed a good candidate for the procedure. Consent signed. Will proceed. (2) Encounter for screening colonoscopy: Code(s): Z12.11 - Encounter for screening for malignant neoplasm of colon Status: Acute Prior Studies I have reviewed the following patient records and this information was taken into consideration when formulating the assessment and plan.: previous labs, previous ER visits, previous hospitalizations and previous clinic visits
--- NOTE | 2025-02-27 12:20 | WPDANESEPPF ---
Anes - Initial Pre Proc Eval Procedure: Operation Date: 02/27/25 12:15 Proposed Procedures p EGD & Screening Colonoscopy - Cong Camacho MD Date/Time: 02/27/25 12:20 Surgeon: Cong Camacho MD Pre Op Diagnosis: Encounter for screening for malignant neoplasm of Patient Data Age: 69 Gender: F Height: 1.63 m Weight: 69.2 kg Last Vital Signs Temp 36.9 C 02/27/25 10:55 Pulse 60 02/27/25 10:55 Resp 16 02/27/25 10:55 BP 118/63 02/27/25 10:55 Pulse Ox 99 02/27/25 10:55 O2 Del Method Room Air 02/27/25 10:55 Allergies Allergy/AdvReac Type Severity Reaction Status Date / Time nortriptyline AdvReac Intermediate ileus Verified 02/27/25 10:40 Home Medications ?Medication ?Instructions ?Recorded ?Confirmed ?Type coenzyme Q10 100 mg capsule 100 mg PO DAILY 10/03/21 02/27/25 History fluticasone propionate 50 2 spray intranasal DAILY PRN 12/13/21 02/27/25 History mcg/actuation nasal allergy symptoms spray,suspension Held on 11/18/24. Instructions: .Provider Order levothyroxine 25 mcg tablet See Rx Instructions .Route 07/06/24 02/27/25 Rx .COMPLEX #100 tabs estradiol 0.01% (0.1 mg/gram) 1 g vaginal 2XW 12/02/24 02/27/25 History vaginal cream pantoprazole 40 mg tablet,delayed 40 mg PO HS #30 tabs 02/08/25 02/27/25 Rx release (Protonix) Saccharomyces boulardii 250 mg 250 mg PO DAILY 02/19/25 02/27/25 History capsule (Daily Probiotic (S. boulardii)) carbamide peroxide 6.5 % ear drops 5 drp LEFT EAR WEEKLY 02/19/25 02/27/25 History (Debrox) cholecalciferol (vitamin D3) 25 25 mcg PO DAILY 02/19/25 02/27/25 History mcg (1,000 unit) capsule (Vitamin D3) clobetasol 0.05 % topical cream 1 applic topical DAILY PRN rash 02/19/25 02/27/25 History multivitamin (Daily Multi-Vitamin 1 tablet PO DAILY 02/19/25 02/27/25 History tablet) Patient hx anesthesia problems: none Family hx anesthesia problems: none Results Review: All pre-operative results and documents have been reviewed as part of the pre-operative evaluation. [facility] Past Medical History Medical History Phil's neuroma of left foot Abscess of face Dysuria Colon cancer screening Trochanteric bursitis of left hip Tooth infection Thoracic radiculopathy Spondylosis of lumbar spine Sciatica of left side Sacroiliitis RUQ abdominal pain Renal cyst, acquired, left Radiculopathy of sacral region Postmenopausal atrophic vaginitis Pharyngoesophageal dysphagia Patellofemoral pain syndrome of left knee Pain in left hip Other chronic pain Neuropathic spondyloarthropathy of thoracic region Neck pain on right side Myofasciitis Mass of left hip region Longitudinal melanonychia Liver hemangioma Lipoma of thigh Lipid screening Lichen sclerosus et atrophicus of the vulva Intercostal neuralgia Insomnia due to medical condition Hives Hip pain, bilateral GERD with esophagitis Gastritis, bile acid reflux Excessive cerumen in right ear canal Esophageal spasm Epigastric pain Dizziness Chronic left-sided thoracic back pain Chronic GERD Cervical radiculopathy Brachial plexus neuropathy Borderline hypothyroidism Biliary stenosis Atypical chest pain Atrophic lichen planus Acute streptococcal pharyngitis CAP (community acquired pneumonia) Bile reflux esophagitis IBS (irritable bowel syndrome) Allergies Sinusitis Hyperlipidemia Hypothyroidism (acquired) Pelvic peritoneal adhesions Ovarian mass, left Endometriosis Bronchitis Acute sinusitis Mid-back pain, acute Pancreas divisum, [place] Spondylosis Abdominal pain GERD (gastroesophageal reflux disease) Surgical History Surgical History History of sinus surgery H/O exploratory laparotomy S/P left oophorectomy Hx of hysterectomy Hx laparoscopic cholecystectomy Family History Family History Mother Family history of thyroid disease Family history of elevated blood lipids Family history of gallbladder disease Family history of osteoarthritis Father Hypertension Family history of atrial fibrillation Patient's father is , Onset Age: 83 Sibling Family history of gallbladder disease Family history of gynecological problem Hypertension Patient's sister is in good health Grandparent Carcinoma of colon Family history of malignant neoplasm of breast Family history of type 2 diabetes mellitus Acute myocardial infarction Other Breast cancer Cancer Diabetes mellitus Family history of allergic disorder Family history of blood dyscrasia Family history of cardiovascular disease Heart disease Malignant neoplasm of prostate Thyroid disorder Social History Social History Social History: Smoking packs per day: 2 Smoking cigarettes per day: 40.0 Years smoked: 5 Smoking pack-years: 10.00 Smoking status: Former smoker Tobacco type: cigarettes Second hand tobacco smoke exposure: No Smoking end date: 03/18/78 Alcohol intake: current Drinks per week: 3 Alcohol use details: wine Substance use: never Substance use type: does not use Lack of Transportation: No Lack of Food: Never True Current Housing: I Have Housing Concerned About Future Housing: No Difficulty Paying Gas/Electric Bills: No Difficulty Paying for Meds: No Currently Unemployed: No Education: Associate Degree Difficulty w/ Childcare or Family Care: No Living arrangements: with family Additional living arrangements comments: Clarisse Occupation/Education: occupation Additional occupation/education comments: [id number] Gender identity (if verbalized by the patient): Female Sexual Orientation (if Verbalized by the Patient): Straight or Heterosexual Spiritual care concerns: No Anes - Eval Final PreProcedure Day of Procedure 02/27/25 12:20 Heart: regular rate and rhythm Lungs: clear to auscultation Airway: Mallampati scale class 1 Neurological: alert and oriented Last oral intake: >/= 8 hours ASA classification: III Emergent: no Anesthetic plan: proceed Anesthesia type and monitoring: monitored anesthesia care Results Review: All pre-operative results and documents have been reviewed as part of the pre-operative evaluation. Informed Consent: The patient's anesthetic plan and its attendant risks and benefits were discussed with the patient/family/POA. Questions were solicited and answers provided to the satisfaction of the patient/family/POA.
--- NOTE | 2025-02-27 12:37 | SUR.OPER ---
EGD [id number]. Colonoscopy start time 1237.
[2025-02-27 12:55] VITALS: BP 101/51; PULSE 58; RESP 15; O2SAT 100
--- NOTE | 2025-02-27 12:56 | WPDANESPN ---
Anes - Prog Note Post-Op Date/Time: 02/27/25 12:56 Cardiovascular status: normal Respiratory status: normal Airway patency: baseline Mental status: baseline Post-Op hydration status: normal Vital Signs: Last Vital Signs Temp 36.9 C 02/27/25 10:55 Pulse 60 02/27/25 10:55 Resp 16 02/27/25 10:55 BP 118/63 02/27/25 10:55 Pulse Ox 99 02/27/25 10:55 O2 Del Method Room Air 02/27/25 10:55 Pain Score (VAS): 0 I/O: Intake & Output 02/26/25 02/27/25 02/27/25 23:59 07:59 15:59 Intake Total 0 Balance 0 Patient Feedback: Patient satisfied with anesthetic care.
[2025-02-27 13:05] VITALS: BP 129/57; PULSE 58; RESP 16; O2SAT 99
[2025-02-27 13:15] VITALS: BP 137/65; PULSE 56; RESP 16; O2SAT 100
== END 2025-02-27 13:24 | disposition home or self-care (01) ==
PROVIDERS: PCP Family Medicine; Visit Provider Internal Medicine Gastroenterology
PROC: 0DJ08ZZ Inspection of Upper Intestinal Tract, Via Natural or Artificial Opening Endoscopic (ICD-10-PCS; CPT 45378; principal; 2025-02-27 12:15)
DX: Z12.11 Encounter for screening for malignant neoplasm of colon (principal); K57.30 Diverticulosis of large intestine without perforation or abscess without bleeding; K21.9 Gastro-esophageal reflux disease without esophagitis; K29.70 Gastritis, unspecified, without bleeding
CPT/HCPCS: G0121; 43239

== ENCOUNTER 2025-02-27 11:52 | Outpatient (NON) | payer OTHER, SELFPAY ==
--- NOTE | 2025-02-27 | S_PTH ---
PATIENT: Ca Dunn LOC: [facility] U#:[id number] AGE/SX: 69/F ROOM: RE02/27/[address]: Cong Camacho MD : [id number] BED: DIS: 02/27/2025 SPEC #: [id number] RECD: 03/01/25 14:03 STATUS: ARUNA RERoberto #: [id number] ARAVIND: 02/27/25 00:[address]: Cong Camacho DEPT: [facility] Surgical RECD BY: Cesilia Hyatt ENTERED: 03/01/25 14:04 SP TYPE: Surgical OTHR DR: Marcio Olvera MD Tissues: A - Gastric Biopsy B - Gastric Biopsy Procedures: Hematoxylin and Eosin Stain Gross and Microscopic Level 4
== END 2025-02-27 11:53 | disposition home or self-care (01) ==
LOC: ANHLAB 03-01 11:54
PROVIDERS: PCP Family Medicine; Visit Provider Internal Medicine Gastroenterology
DX: K21.9 Gastro-esophageal reflux disease without esophagitis (principal)
CPT/HCPCS: 88305

== ENCOUNTER 2025-03-15 15:32 | Outpatient (CLI) | payer OTHER, SELFPAY ==
--- NOTE | ~2025-03-15 | XR_ITS ---
EXAMINATION: XR thoracic spine 2V DATE: 03/15/2025 15:47 INDICATION: Dorsalgia TECHNIQUE: One AP, lateral and lateral swimmer's views of the thoracic spine were obtained. COMPARISON: None. FINDINGS: Alignment is normal. Vertebral body heights are normal. There is multilevel disc height loss, moderate severity in the lower cervical spine and at a few levels in the mid and upper thoracic spine and mild at the remaining levels. Paravertebral soft tissues are unremarkable. /Portions the lungs are clear with no evident pleural effusion or pneumothorax. Heart size is normal. IMPRESSION: 1. Moderate thoracic and lower cervical spondylosis. Reviewed, dictated and finalized at location A. STRIAL ANALYST
== END 2025-03-15 15:33 | disposition home or self-care (01) ==
LOC: MICIMG 15:34
PROVIDERS: PCP Family Medicine
DX: M47.814 Spondylosis without myelopathy or radiculopathy, thoracic region (principal); M47.812 Spondylosis without myelopathy or radiculopathy, cervical region
CPT/HCPCS: 72070